=== PATIENT | male | born 1935 | race Caucasian/White ===

== ENCOUNTER → 2016-08-24 | Outpatient (CLI) | payer BC ==
[~2016-08-24] MED LIST: AMLO-110 PO; BNC5 PO; CLL250 PO; CLTP PO; CYAN10005 PO; FLV1 PO; FSM70 PO; IBUP1CAP9 PO; LOSA100T65 PO; PRED-301 PO
[2016-08-24 09:41] LABS: BASO % 0.4 %; BASO ABS # 0.03 K/uL (0-0.2); COMPLETE YES; EOS % 2.9 %; HEMATOCRIT 42.3 % (42-52); IG% 0.4 %; LYMPH % 45.6 %; LYMPH ABS # 3.49 K/uL (1.2-3.4); MEAN CELL VOLUME 92.4 fL (80-100); MEAN CORPUSCULAR HEMOGLOBIN 30.3 pg (25-34); MEAN CORPUSCULAR HGB CONC 32.9 g/dl (32-36); MEAN PLATELET VOLUME 11.4 fL (7.4-10.4); MONO % 11.8 %; NEUT % 38.9 %; PLATELET COUNT 246 K/uL (130-400); RED BLOOD COUNT 4.58 M/uL (4.7-6.1); WHITE BLOOD COUNT 7.65 K/uL (4.8-10.8)
[2016-08-24 10:00] LABS: BLOOD UREA NITROGEN 17 mg/dl (7-18); CARBON DIOXIDE 25 mmol/L (21-32); CHLORIDE 107 mmol/L (98-107); CHOLESTEROL 197 mg/dl (0-200); CREATININE 0.83 mg/dl (0.60-1.40); GLUCOSE 91 mg/dl (70-99); POTASSIUM 4.1 mmol/L (3.5-5.1); SODIUM 141 mmol/L (136-145); TRIGLYCERIDES 59 mg/dl (0-150); VERY LOW DENSITY LIPOPROT CALC 12 mg/dl
[2016-08-24 10:08] LABS: ESTIMATED AVERAGE GLUCOSE 120 mg/dl; HA1C FLAG Normal (Normal)
[2016-08-24 10:10] LABS: CHOLESTEROL/HDL RATIO 2.4; HDL CHOLESTEROL 82 mg/dl; LDL CHOLESTEROL CALCULATED 103 mg/dl
[2016-08-24 10:14] LABS: CALCIUM 9.1 mg/dl (8.5-10.1)
== END | disposition home or self-care (01) ==
LOC: C.LAB 07:22
PROVIDERS: ATTEND Internal Medicine
DX: G70.00 Myasthenia gravis without (acute) exacerbation (principal); R73.9 Hyperglycemia, unspecified; E78.5 Hyperlipidemia, unspecified

== ENCOUNTER → 2017-02-01 | Outpatient (CLI) | payer BC ==
[2017-02-01 09:35] LABS: BASO % 0.2 %; BASO ABS # 0.01 K/uL (0-0.2); COMPLETE YES; EOS % 5.9 %; HEMATOCRIT 42.4 % (42-52); IG% 0.3 %; LYMPH % 32.6 %; MEAN CELL VOLUME 93.4 fL (80-100); MEAN CORPUSCULAR HEMOGLOBIN 31.9 pg (25-34); MEAN CORPUSCULAR HGB CONC 34.2 g/dl (32-36); MEAN PLATELET VOLUME 11.2 fL (7.4-10.4); MONO % 9.9 %; NEUT % 51.1 %; PLATELET COUNT 198 K/uL (130-400); RED BLOOD COUNT 4.54 M/uL (4.7-6.1); WHITE BLOOD COUNT 6.45 K/uL (4.8-10.8)
[2017-02-01 10:18] LABS: ALT/SGPT 24 U/L (12-78); AST/SGOT 14 U/L (15-37); BLOOD UREA NITROGEN 24 mg/dl (7-18); BUN/CREATININE RATIO 26.5 (10-20); CARBON DIOXIDE 26 mmol/L (21-32); CHLORIDE 104 mmol/L (98-107); CREATININE 0.89 mg/dl (0.60-1.40); GLUCOSE 91 mg/dl (70-99); SODIUM 139 mmol/L (136-145)
[2017-02-01 10:23] LABS: CHOLESTEROL 228 mg/dl (0-200); CHOLESTEROL/HDL RATIO 2.9; HDL CHOLESTEROL 78 mg/dl; LDL CHOLESTEROL CALCULATED 128 mg/dl; TRIGLYCERIDES 111 mg/dl (0-150); VERY LOW DENSITY LIPOPROT CALC 22 mg/dl
[2017-02-01 12:40] LABS: ESTIMATED AVERAGE GLUCOSE 114 mg/dl; HA1C FLAG Normal (Normal)
== END | disposition home or self-care (01) ==
LOC: C.LAB 07:51
PROVIDERS: ATTEND Internal Medicine
DX: E78.5 Hyperlipidemia, unspecified (principal); I10 Essential (primary) hypertension; R73.9 Hyperglycemia, unspecified; G70.00 Myasthenia gravis without (acute) exacerbation; Z12.5 Encounter for screening for malignant neoplasm of prostate

== ENCOUNTER → 2017-03-02 | Outpatient (CLI) | payer BC ==
[~2017-03-02] MED LIST changes: +GADAVIST IV PRN
--- NOTE | 2017-03-02 11:52 | DIAGNOSTIC IMAGING REPORT ---
ABDOMEN COMBO CLINICAL HISTORY: 81 years-old Male presenting with K86.2 Pancreatic cystD49.0 Pancreas [id number]. TECHNIQUE: Multisequence, multiplanar MR imaging of the abdomen was performed before and after the administration of intravenous contrast. IV contrast: 8 mL of Gadavist. COMPARISON: 01/22/2015. FINDINGS: Localizer images: Unremarkable. Lung bases: Lung bases clear. Normal heart size. No pericardial or pleural effusion. Liver: Normal morphology. Stable appearance of the lobular septated 10 mm lesion in the right hepatic lobe consistent with hepatic cyst. Additional subcentimeter punctate cystic lesions noted throughout the liver consistent with hamartomas are hepatic cysts. Hepatic fat fraction measures 3.7%, which is normal. Patent hepatic vasculature with conventional hepatic arterial anatomy. Biliary: Conventional intrahepatic biliary bifurcation. No intrahepatic or extrahepatic biliary ductal dilatation. Normal gallbladder. Pancreas: Stable appearance of the 2 cystic lesions in the pancreas, the smaller in the pancreatic tail measuring 6 mm and the larger at the neck body junction measuring 20 mm. Additional 5 mm cystic lesion in the pancreatic head. No pancreatic ductal dilatation or worrisome petrous. Spleen: Small cystic lesion laterally in the spleen consistent with pseudocyst or lymphangioma. Small enhancing focus at the inferior aspect of the spleen consistent with subcentimeter hemangioma. Adrenal glands: Normal. Kidneys and ureters: Normal. No hydronephrosis. Bowel: Normal. No bowel obstruction. Peritoneal cavity: No free fluid or intraperitoneal gas. Lymph nodes: No enlarged lymph nodes in the abdomen. Vasculature: Aorta and IVC patent and normal in caliber. Abdominal wall: Normal. Musculoskeletal: Postsurgical changes of transpedicular screw and elaine fixation of L2-L5 with laminectomy defects. IMPRESSION: 1. 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 No worrisome features. These have been stable for over 2 years. Per the [employer] incidental findings committee recommendations no further follow-up would be indicated. Electronically signed by: Carson Peters M.D. 03/02/2017 11:50 AM Dictated Date/Time: 03/02/2017 11:40 AM
== END | disposition home or self-care (01) ==
LOC: C.MRIBC 10:48
PROVIDERS: ATTEND Internal Medicine
DX: D49.0 Neoplasm of unspecified behavior of digestive system (principal); K86.2 Cyst of pancreas

== ENCOUNTER → 2017-07-23 | Outpatient (CLI) | payer BC ==
[~2017-07-23] MED LIST changes: -GADAVIST IV PRN
[2017-07-23 10:05] LABS: HEMOGLOBIN A1C 5.5 % (4.5-5.6)
[2017-07-23 10:28] LABS: ALT/SGPT 26 U/L (12-78); AST/SGOT 15 U/L (15-37); BLOOD UREA NITROGEN 12 mg/dl (7-18); CALCIUM 9.2 mg/dl (8.5-10.1); CARBON DIOXIDE 29 mmol/L (21-32); CHOLESTEROL 236 mg/dl (0-200); CREATININE 0.88 mg/dl (0.60-1.40); GLUCOSE 92 mg/dl (70-99); POTASSIUM 4.2 mmol/L (3.5-5.1); SODIUM 141 mmol/L (136-145)
[2017-07-23 10:31] LABS: LDL CHOLESTEROL CALCULATED 127 mg/dl
== END | disposition home or self-care (01) ==
LOC: C.LAB 08:19
PROVIDERS: ATTEND Internal Medicine
DX: E78.5 Hyperlipidemia, unspecified (principal); I10 Essential (primary) hypertension; R73.9 Hyperglycemia, unspecified

== ENCOUNTER 2023-06-07 16:35 | Inpatient (IN) ==
--- NOTE | 2023-06-07 17:04 | ED Triage Note ---
Date of Service June 07, 2023 Provider in Triage Author: Elizabeth Mariscal History of Present Illness This patient was briefly evaluated while in triage. An abbreviated physical exam was performed. This patient is a 87-year-old Male who presents to the ED for evaluation of abnormal EKG. Evaluated by PCP for shortness of breath, decreased appetite, lethargy s/p COVID infection 05/19, reportedly had abnormal EKG and referred for eval. Denies fevers. Notes left sided chest pain with cough and dyspnea on exertion. H/o of PE but not on any blood thinner. Physical Exam Constitutional: alert and oriented x3. no acute distress. HEENT: normocephalic, atraumatic. normal conjunctiva.PERRLA. EOM's grossly intact. Respiratory: equal chest rise. normal respiratory effort, no accessory muscle use. Cardiovascular: regular rate and rhythm. MSK: moves all 4 extremities spontaneously Psych:appropriate mood and affect. Initial orders for labs and / or imaging were placed and patient was placed in the waiting area until a bed is available. Please see further documentation for the full ED course.
[2023-06-07 17:33] LABS: Basophils # (auto) 0.04 K/uL (0.00-0.20); Basophils % (auto) 0.2 %; Eosinophils # (auto) 0.03 K/uL (0.00-0.50); Eosinophils % (auto) 0.2 %; Hemoglobin 14.3 g/dl (14.0-18.0); Immature Granulocytes # (auto) 0.15 K/uL (0.01-0.20); Immature Granulocytes % (auto) 0.8 %; Lymphocytes # (auto) 2.81 K/uL (1.20-3.40); Lymphocytes % (auto) 14.9 %; Mean Corpuscular Hgb Conc 33.3 g/dL (32.0-36.0); Mean Corpuscular Volume 93.3 fL (80.0-100.0); Mean Platelet Volume 11.2 fL (9.4-12.4); Neutrophils # (auto) 14.27 K/uL (1.40-6.50); Neutrophils % (auto) 75.9 %; Platelet Count 236 K/uL (130-400); RDW Coefficient of Variation 12.4 % (11.5-14.5); RDW Standard Deviation 42.9 fL (36.4-46.3); Red Blood Count 4.61 M/uL (4.70-6.10)
--- NOTE | 2023-06-07 17:34 | Emergency Department Note ---
Impression & Plan Pulmonary embolism, bilateral, Shortness of breath, Atrial fibrillation with RVR ED Provider Note NAME: TONI MARRERO AGE: 87 SEX: M : 1935 ARRIVES VIA: Walk-In INFORMANT: Patient, ED PROVIDER(S): Chavez Comer MD CHIEF COMPLAINT: Shortness of breath, outpatient referral MEDICAL DECISION MAKING: Patient presents due to concern for dyspnea and seen in the outpatient setting referred here for evaluation and treatment. Patient was noted to be irregularly irregular and tachycardic. Patient on home metoprolol was ordered Lopressor. Patient did have improvements slightly improved rate. Additional rate control deferred patient CT angiography of the chest. Patient does have a white count of 18 and there was concern for possible consolidation seen on x-ray as the patient did have a Pro-Elias ordered Rocephin and Doxy in and blood cultures. The patient sodium 132. BNP elevated to 18. Patient's chest x-ray does show pleural effusions. CT angiography of the chest does show concern for extensive bilateral PE with pleural effusions. Cannot rule out superimposed pneumonia. Also associated aneurysmal dilatation of the ascending aorta. Patient was ordered a heparin bolus and drip. I did inform the patient the patient's family of the findings. They are comfortable plan of care. The patient does feel improved. Lasix held given the patient's bilateral PEs. Critical Care: I have personally spent 45 minutes of critical care time in direct management of this patient. This includes bedside care, interpretation of diagnostic studies, and testing, discussion with consultants, patient, and family members, and other require inpatient management activities. This 45 minutes is in excess of all separately billable procedures. Discussion w/ other healthcare providers: Dr. Jung inpatient medicine service Prior /Outside records reviewed: I reviewed a cardiology visit from Dr. Hansen from November 12, 2022. The patient is a known history of moderate AAS/MR and frequent PVCs. Patient does have a prior history of PE in 2016. Patient was prior history of B12 folic acid prednisone vitamin D3 amlodipine CellCept and metoprolol. I reviewed a primary care visit from Meenu Ferguson PA-C and Dr. Torres prior to the visit. Patient had presented due to concern for pleuritic chest pain MTHFR gene mutation dyspnea and tachycardia patient was to be referred to the emergency department for further evaluation. Differential diagnosis: Reactive airway disease, pneumonia, pneumothorax, COPD, CHF, ACS, pulmonary embolism, musculoskeletal, GERD as well as other pathologies were considered. Diagnostics, as interpreted by me: ECG: A-fib, RVR, rate 135, normal QRS, normal axis no ST elevations. Cardiac monitoring: An order was placed for continuous cardiac monitoring. The monitor shows a rate of 115 with tachycardic and irregular irregular rhythm. Patient was placed on pulse oximetry Medical decision rules: None Imaging studies: I informally interpreted the patient's chest x-ray does show bilateral pleural effusions with formal report to follow. HPI: Patient presents due to concern for shortness of breath. The patient was seen as an outpatient referred here for further evaluation and treatment. The patient states that he had shortness of breath for several weeks and had a recent COVID illness around that time but it seemed to improve and then worsened last . The patient denies any palpitations or fluttering. The patient does have a history of PVCs and does take metoprolol. Prior history of MTHFR mutation but does not take any current blood thinning medications. Patient denies any recent surgeries procedures hospitalizations or prolonged car or plane travel. Patient denies any falls or trauma. The patient does have some chest pain with lying flat. Patient does complain of exertional dyspnea. No significant shortness of breath at rest. The patient does sound as though he has a wet cough but it is not productive. PAST MEDICAL HISTORY: See Below PAST SURGICAL HISTORY: See Below SOCIAL HISTORY: See Below HOME MEDICATIONS: See Below ALLERGIES: See Below VITALS: See Below PHYSICAL EXAMINATION: GENERAL: NAD, non-toxic. EYE EXAM: Normal conjunctiva. PERRL, no anisocoria and EOM's grossly intact w/o pain. OROPHARYNX: Moist mucus membranes, grossly normal dentition. NECK: Trachea midline, no stridor. Supple, no nuchal rigidity, no adenopathy, non-tender. No signs of meningismus. FROM of the neck with good chin to chest and neck extension. LUNGS: Clear to auscultation. Normal chest wall mechanics. HEART: Irregular irregular tachycardic, no MRG. ABDOMEN: Abdomen soft, non-tender, no masses, no rebound or guarding. BACK: No CVA TTP. SKIN: No rashes and no bruising. UPPER EXTREMITIES: Upper extremities are grossly normal. LOWER EXTREMITIES: Grossly normal, 3-4+ bilateral lower extremity edema without any calf pain or erythema NEURO EXAM: A&O x3, cranial nerves II-XII grossly intact, normal speech, moves all 4 extremities. Past Med/Surg History Medical History Myofascial pain Ambulatory dysfunction Postlaminectomy syndrome of lumbosacral region Sacroiliitis Leg length discrepancy Cervical radiculopathy at C5 Generalized osteoarthritis Hammer toe Hyperglycemia Hyperlipidemia Osteopenia Pancreatic cyst Myasthenia gravis 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 melanoma of left lower leg Pulmonary embolism (2016) 2016--unknown cause;not on any blood thinners Chronic steroid use Hypertension Asthma in the past; no inhalers/nebulizers/no issues Surgical History History of hammertoe correction right foot History of lumbar spinal fusion x2 History of repair of right rotator cuff x2 History of repair of left rotator cuff History of total right hip replacement History of arthroscopy of right knee History of total right knee replacement (TKR) Hx of vasectomy History of ERCP biopsy tumor of pancreas--benign History of melanoma excision x2 History of wisdom tooth extraction History of bilateral cataract extraction Family History Mother Breast cancer Father , AGE 83 CHF (congestive heart failure) Hypertension Myocardial infarction Grandmother (Maternal) , AGE 56 Stroke Brother , AGE 75 Stroke Grandfather (Maternal) Valvular heart disease Other Crohn's disease Denies family history of Colon cancer Ovarian cancer Prostate cancer Colorectal cancer Ulcerative colitis Social History Smoking Status: Never smoker packs per day: 0.75; Second Hand Exposure: Yes ( smoked/father smoked); Hx Alcohol Use: No Hx Substance Use: No Preferred Language: Malian Communication Ability: Effective Visual Impairment: No Limitations Hearing Ability: Use of Hearing Aid Pulling Machine Operator Required: No Beliefs That Will Affect Care: None marital status: Current Living Situation: Spouse current occupational status: retired 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 Feels Safe at Home: Yes Dental Care, Regularly: Yes Physical Activity Frequency: Daily Seatbelt Use: always Assistive Devices: Glasses and Hearing Aid - Bilateral Allergies Allergies Allergy/AdvReac Type Severity Reaction Status Date / Time ciprofloxacin Allergy Intermediate RASH Verified 06/07/23 18:55 Home Meds Home Medications Medication Instructions Recorded Confirmed cyanocobalamin (vitamin B-12) 1,000 mcg PO QAM 01/10/19 06/07/23 1,000 mcg tablet (Vitamin B-12) folic acid 1 mg tablet 1 mg PO QAM 01/10/19 06/07/23 prednisone 10 mg tablet 5 - 10 mg PO Q OTHER DAY 11/01/19 06/07/23 cholecalciferol (vitamin D3) 50 2,000 unit PO DAILY 01/08/22 06/07/23 mcg (2,000 unit) capsule mycophenolate mofetil 500 mg 500 mg PO DAILY 07/30/22 06/07/23 tablet (CellCept) Previous Rx's Medication Instructions Recorded metoprolol succinate 25 mg 25 mg PO DAILY #90 tabs 10/08/22 tablet,extended release 24 hr amlodipine 5 mg tablet 5 mg PO HS #90 tabs 01/20/23 Results & Data (ED) Vital Signs Vital Signs - 24 hr 06/07/23 17:02 06/07/23 17:47 06/07/23 18:00 Temperature 36.7 C Temperature Source Temporal Artery Scan Pulse Rate 103 H 115 H 122 H Respiratory Rate 20 21 Respiratory Effort / Characteristics Non-Labored Spontaneous Respiratory Depth Normal Blood Pressure 120/52 L 113/86 Blood Pressure Mean 74 95 Blood Pressure Position Sitting Pulse Oximetry 94 92 Oxygen Delivery Method Room Air Sepsis Recent Fever Within 48 Hours No Sepsis New/Unexplained Change in Mental Status No Sepsis Action Taken by Nursing No Action Required 06/07/23 18:06 06/07/23 18:36 06/07/23 19:32 Temperature Temperature Source Pulse Rate 122 H 98 H 112 H Respiratory Rate Respiratory Effort / Characteristics Respiratory Depth Blood Pressure 113/86 113/89 127/78 Blood Pressure Mean 97 Blood Pressure Position Pulse Oximetry 92 Oxygen Delivery Method Sepsis Recent Fever Within 48 Hours Sepsis New/Unexplained Change in Mental Status Sepsis Action Taken by Fdc Medications Current Medication List: was personally reviewed by me Laboratory Data Attestation: I reviewed the patient's lab results. 06/07/23 17:16 06/07/23 17:16 Lab Results 06/07/23 06/07/23 06/07/23 Range/Units 17:16 19:02 19:04 WBC 18.80 H (4.8-10.8) K/ul RBC 4.61 L (4.70-6.10) M/uL Hgb 14.3 (14.0-18.0) g/dl Hct 43.0 (42.0-52.0) % MCV 93.3 (80.0-100.0) fL MCH 31.0 (25.0-34.0) pg MCHC 33.3 (32.0-36.0) g/dL RDW Std Deviation 42.9 (36.4-46.3) fL RDW Coeff of Carlene 12.4 (11.5-14.5) % Plt Count 236 (130-400) K/uL MPV 11.2 (9.4-12.4) fL Immature Gran % (Auto) 0.8 % Neut % (Auto) 75.9 % Lymph % (Auto) 14.9 % [place] % (Auto) 8.0 % Eos % (Auto) 0.2 % Baso % (Auto) 0.2 % Neut # (Auto) 14.27 H (1.40-6.50) K/uL Lymph # (Auto) 2.81 (1.20-3.40) K/uL [place] # (Auto) 1.50 H (0.11-0.59) K/uL Eos # (Auto) 0.03 (0.00-0.50) K/uL Baso # (Auto) 0.04 (0.00-0.20) K/uL Immature Gran # (Auto) 0.15 (0.01-0.20) K/uL PT 13.5 H (9.0-12.0) Seconds INR 1.2 H (0.9-1.1) APTT 26 (21-31) Seconds PTT Ratio 0.9 Sodium 132 L (136-145) mmol/L Potassium 4.6 (3.5-5.1) mmol/L Chloride 97 L (98-107) mmol/L Carbon Dioxide 26 (21-32) mmol/L Anion Gap 9 (3-11) BUN 17 (6-23) mg/dl Creatinine 1.02 (0.6-1.4) mg/dl Est Cr Clr Drug Dosing Not Reportable Est GFR ( Amer) 76.8 ml/min Est GFR (Non-Af Amer) 66.2 ml/min BUN/Creatinine Ratio 16.7 (10-20) Glucose 122 H (70-99(Fasting)) mg/dl Calcium 9.8 (8.6-10.3) mg/dl Phosphorus 3.5 (2.5-4.9) mg/dl Magnesium 1.9 (1.7-2.4) mg/dl Total Bilirubin 1.5 H (0.2-1.0) mg/dl AST 11 L (13-39) U/L ALT 11 (7-52) U/L Alkaline Phosphatase 56 (34-104) U/L Troponin I High Sens 9.7 (0-20) pg/ml B-Natriuretic Peptide 218 H (0-100) pg/ml Total Protein 6.6 (6.0-8.3) gm/dl Albumin 3.6 (3.4-5.0) gm/dl Globulin 3.0 (2.5-4.0) gm/dl Albumin/Globulin Ratio 1.2 (0.9-2) Lipase 14 (11-82) U/L Procalcitonin 0.11 (0-0.5) ng/ml TSH 1.231 (0.300-4.500) uIu/ml Administered Medications Heparin Sodium/Dextrose (Heparin Sodium/Dextrose) 25,000 units in 500 mls @ 27 mls/hr IV .[id number] [facility]; Protocol Stop: 07/07/23 19:14 Last Admin: 06/07/23 20:33 Dose: 1,350 units/hr, 27 mls/hr Documented By: FERMIN Co-signed By: LYNN Metoprolol Succinate (Metoprolol Succ 25mg Ext Rel Tab) 25 mg PO PM ANDRÉS Stop: 07/07/23 21:40 Last Admin: 06/07/23 22:17 Dose: 25 mg Documented By: BK Discontinued Medications Doxycycline Hyclate (Doxycycline Hyclate 100 Mg Cap) 100 mg PO NOW STA Stop: 06/07/23 18:43 Last Admin: 06/07/23 19:33 Dose: 100 mg Documented By: HH Furosemide (Furosemide 40 Mg/4 Ml Vial) 40 mg IV ONE ONE Stop: 06/07/23 18:42 Last Admin: 06/07/23 19:50 Dose: Not Given Documented By: PETEY Heparin Sodium (Porcine) (Heparin Sod (Porcine) 1000 Unit/Ml) 1 units IV NOW ONE Stop: 06/07/23 19:23 Last Admin: 06/07/23 20:46 Dose: Not Given Documented By: PETEY Heparin Sodium (Porcine) (Heparin Ivp From [facility] Protocol (With Bolus)) 6,000 units IV NOW ONE Stop: 06/07/23 20:01 Last Admin: 06/07/23 20:32 Dose: 6,000 units Documented By: FERMIN Co-signed By: LYNN Heparin Sodium/Dextrose (Heparin Iv Adult Wt-Based Standard *No* Initial Bolus Protocol) 1 each IV ONE STA; Protocol Stop: 06/07/23 19:00 Last Admin: 06/07/23 20:01 Dose: Not Given Documented By: PETEY Heparin Sodium/Dextrose (Heparin Iv Adult Wt-Based Standard W/ Initial Bolus Protocol) 1 each IV NOW STA; Protocol Stop: 06/07/23 19:08 Last Admin: 06/07/23 20:46 Dose: Not Given Documented By: PETEY Ceftriaxone Sodium (Rocephin) 2,000 mg in 50 mls @ 100 mls/hr IV NOW STA Stop: 06/07/23 19:11 Last Infusion: 06/07/23 20:28 Dose: Infused Documented By: Admin: 06/07/23 19:33 Dose: 100 mls/hr Documented By: PETEY Magnesium Sulfate/Dextrose (Magnesium Sulfate / D5w) 1 gm in 100 mls @ 50 mls/hr IV ONE ONE Stop: 06/07/23 23:40 Last Admin: 06/07/23 22:17 Dose: 50 mls/hr Documented By: KENYA Ioversol (Optiray 350 500ml) 100 ml IV ONCE ONE Stop: 06/07/23 18:29 Last Admin: 06/07/23 18:29 Dose: 100 ml Documented By: RAD Metoprolol Tartrate (Metoprolol Tartrate 1 Mg/Ml Vial) 5 mg IV NOW STA Stop: 06/07/23 17:35 Last Admin: 06/07/23 18:06 Dose: 5 mg Documented By: MT Imaging Data Radiologist's Impression: Chest CTA 06/07/23 17:04 CT ANGIOGRAM OF THE CHEST CLINICAL HISTORY: Atypical chest pain. Dyspnea. COMPARISON STUDY: Chest CT dated 12/06/2011. Chest x-ray dated 06/07/2023. TECHNIQUE: Following the IV administration of 100 cc of Optiray 320, CT angiogram of the chest was performed from the upper abdomen to the thoracic inlet utilizing the pulmonary embolus protocol. Images are reviewed in the axial, sagittal, and coronal planes. 3-D MIPS images are created and assessed. IV contrast was administered without complication. A dose lowering technique was utilized adhering to the principles of ALARA. CT DOSE: 613.87 mGy.cm FINDINGS: Thyroid: Imaged portions of the thyroid gland are normal in size and attenuation. Thoracic aorta: There is atherosclerotic calcification of the thoracic aorta. There is no aneurysm and dilatation of the ascending thoracic aorta which measures up to 4.3 cm in diameter. The remainder of the thoracic aorta is normal in caliber, and the arch demonstrates standard 3-vessel anatomy. The thoracic aorta is not well-opacified. Pulmonary vasculature: The main pulmonary arteries are dilated suggesting pulmonary artery hypertension. There is pulmonary embolus within the distal right main pulmonary artery. This extends into the right upper, right middle, right lower lobe pulmonary arteries into segmental and subsegmental branches. There is also thrombus in the distal left main pulmonary artery. This extends into the left lower lobe pulmonary artery into segmental and subsegmental branches. There is also segmental and subsegmental pulmonary embolus within branches of the left upper lobe and lingular pulmonary artery. Heart: The heart is enlarged and without pericardial effusion. The coronary arteries and aortic valve leaflets are densely calcified. Lungs and pleural spaces: There are right larger than left pleural effusions with dependent consolidation. There is also peripheral wedge-shaped consolidation in the right upper lobe seen on image #136. The trachea and central airways are clear. Scattered calcified granulomas are observed. Mediastinum: A mildly enlarged prevascular node measures 12 mm in short axis. Dorota: Mildly enlarged hilar nodes measure up to 10 mm in short axis. Axillae: There is no axillary lymphadenopathy. Upper abdomen: Partially visualized upper abdominal viscera is within normal limits. Skeletal structures: The skeletal structures are osteopenic. Degenerative change is noted in the shoulders and spine. No lytic or blastic bony lesions are seen. IMPRESSION: 1. Extensive bilateral pulmonary embolus as above. 2. Cardiomegaly. 3. Right larger than left pleural effusions with dependent consolidation. Given the volume of thrombus this likely represents pulmonary infarcts. Correlate clinically for evidence of a superimposed pneumonia. Radiographic follow-up to resolution is recommended 4. There is mild aneurysmal dilatation of the ascending thoracic aorta which measures up to 4.3 cm. 5. Mildly enlarged mediastinal and hilar nodes are nonspecific and likely reactive. 6. Additional findings as above. ACT 112: Negative or not required by law. Electronically signed by: Naveen Loyd M.D. 06/07/2023 6:46 PM Chest X-Ray 06/07/23 17:04 SINGLE VIEW CHEST CLINICAL HISTORY: Atypical chest pain. FINDINGS: An AP, portable, upright chest radiograph is compared to chest x-ray and chest CT dated 12/06/2011. The heart is enlarged noting atherosclerotic calcification of the thoracic aorta. There is pulmonary vascular congestion. Chronic interstitial thickening is similar to previous. There are right larger than left pleural effusions with dependent consolidation. No pneumothorax is seen. The skeletal structures are osteopenic. The bony thorax is grossly intact. Advanced arthritic change is noted in the shoulders. IMPRESSION: 1. Cardiomegaly evidence of congestive failure. 2. Right larger than left effusions with dependent consolidation. Radiographic follow-up to resolution is recommended. ACT 112: Negative or not required by law. Electronically signed by: Naveen Loyd M.D. 06/07/2023 6:06 PM Discharge Plan Visit Data Chief Complaint: Referred by Doctor Stated Complaint: REF BY DOC,CARDIAC ASSESSMENT,?BLOODCLOT ED Provider: Chavez Comer Discharge Problem: Pulmonary embolism, bilateral, Shortness of breath, Atrial fibrillation with RVR Patient Disposition: Admitted As Inpatient Discharge Instructions Interventions: ED Discharge Assessment Last Done: 06/07/23 20:47
[2023-06-07 17:49] LABS: Alanine Aminotransferase 11 U/L (7-52); Albumin Globulin Ratio 1.2 (0.9-2); Albumin Level 3.6 gm/dl (3.4-5.0); Alkaline Phosphatase 56 U/L (34-104); Anion Gap 9 (3-11); Aspartate Aminotransferase 11 U/L (13-39); BUN Creatinine Ratio 16.7 (10-20); Bilirubin,Total 1.5 mg/dl (0.2-1.0); Blood Urea Nitrogen 17 mg/dl (6-23); Calcium 9.8 mg/dl (8.6-10.3); Carbon Dioxide 26 mmol/L (21-32); Chloride 97 mmol/L (98-107); Est GFR (African American) 76.8 ml/min; Est GFR (Non-African American) 66.2 ml/min; Glucose 122 mg/dl (70-99(Fasting)); Lipase 14 U/L (11-82); Magnesium 1.9 mg/dl (1.7-2.4); Potassium 4.6 mmol/L (3.5-5.1); Sodium 132 mmol/L (136-145); Total Protein 6.6 gm/dl (6.0-8.3)
[2023-06-07 17:55] LABS: Troponin I High Sensitivity 9.7 pg/ml (0-20)
[2023-06-07 17:58] LABS: Phosphorus 3.5 mg/dl (2.5-4.9)
[2023-06-07] MEDS: METOPROLOL TARTRATE 1 MG/ML VIAL IV STA (18:06)
--- NOTE | 2023-06-07 18:08 | XRay Report ---
SINGLE VIEW CHEST CLINICAL HISTORY: Atypical chest pain. FINDINGS: An AP, portable, upright chest radiograph is compared to chest x-ray and chest CT dated 11/14. The heart is enlarged noting atherosclerotic calcification of the thoracic aorta. There is pu lmonary vascular congestion. Chronic interstitial thickening is similar to previous. There are right larger than left pleural effusions with dependent consolidation. No pneumothorax is seen. The skeleta l structures are osteopenic. The bony thorax is grossly intact. Advanced arthritic change is noted in the shoulders. IMPRESSION: 1. Cardiomegaly evidence of congestive failure. 2. Right larger than left effusions with dependent consolidation. Radiographic follow-up to resolutio n is recommended. ACT 112: Negative or not required by law. Electronically signed by: Naveen Loyd M.D. 06/07/2023 6:06 PM
[2023-06-07 18:13] LABS: INR 1.2 (0.9-1.1); Partial Thromboplastin Ratio 0.9; Partial Thromboplastin Time 26 Seconds (21-31); Prothrombin Time 13.5 Seconds (9.0-12.0)
[2023-06-07] MEDS: OPTIRAY 350 500ml IV ONE (18:29)
--- NOTE | 2023-06-07 18:48 | CT Scan Report ---
CT ANGIOGRAM OF THE CHEST CLINICAL HISTORY: Atypical chest pain. Dyspnea. COMPARISON STUDY: Chest CT dated 12/06/2011. Chest x-ray dated 06/07/2023. TECHNIQUE: Following the IV administration of 100 cc of Optiray 320, CT angiogram of the chest was pe rformed from the upper abdomen to the thoracic inlet utilizing the pulmonary embolus protocol. Images are reviewed in the axial, sagittal, and coronal planes. 3-D MIPS images are created and assessed. I V contrast was administered without complication. A dose lowering technique was utilized adhering to the principles of ALARA. CT DOSE: 613.87 mGy.cm FINDINGS: Thyroid: Imaged portions of the thyroid gland are normal in size and attenuation. Thoracic aorta: There is atherosclerotic calcification of the thoracic aorta. There is no aneurysm an d dilatation of the ascending thoracic aorta which measures up to 4.3 cm in diameter. The remainder o f the thoracic aorta is normal in caliber, and the arch demonstrates standard 3-vessel anatomy. The t horacic aorta is not well-opacified. Pulmonary vasculature: The main pulmonary arteries are dilated suggesting pulmonary artery hypertensi on. There is pulmonary embolus within the distal right main pulmonary artery. This extends into the r ight upper, right middle, right lower lobe pulmonary arteries into segmental and subsegmental branche s. There is also thrombus in the distal left main pulmonary artery. This extends into the left lower lobe pulmonary artery into segmental and subsegmental branches. There is also segmental and subsegmen umair pulmonary embolus within branches of the left upper lobe and lingular pulmonary artery. Heart: The heart is enlarged and without pericardial effusion. The coronary arteries and aortic valve leaflets are densely calcified. Lungs and pleural spaces: There are right larger than left pleural effusions with dependent consolida tion. There is also peripheral wedge-shaped consolidation in the right upper lobe seen on image #136. The trachea and central airways are clear. Scattered calcified granulomas are observed. Mediastinum: A mildly enlarged prevascular node measures 12 mm in short axis. Dorota: Mildly enlarged hilar nodes measure up to 10 mm in short axis. Axillae: There is no axillary lymphadenopathy. Upper abdomen: Partially visualized upper abdominal viscera is within normal limits. Skeletal structures: The skeletal structures are osteopenic. Degenerative change is noted in the shou lders and spine. No lytic or blastic bony lesions are seen. IMPRESSION: 1. Extensive bilateral pulmonary embolus as above. 2. Cardiomegaly. 3. Right larger than left pleural effusions with dependent consolidation. Given the volume of thrombu s this likely represents pulmonary infarcts. Correlate clinically for evidence of a superimposed pneu monia. Radiographic follow-up to resolution is recommended 4. There is mild aneurysmal dilatation of the ascending thoracic aorta which measures up to 4.3 cm. 5. Mildly enlarged mediastinal and hilar nodes are nonspecific and likely reactive. 6. Additional findings as above. ACT 112: Negative or not required by law. Electronically signed by: Naveen Loyd M.D. 06/07/2023 6:46 PM
[2023-06-07] MEDS ORDERED: HEPARIN SODIUM/DEXTROSE 25,000 UNITS/500 ML BAG IV SCH (19:30)
[2023-06-07] MEDS: cefTRIAXone SODIUM 2,000 MG/50 ML BAG IV STA (19:33)
[2023-06-07] MEDS: DOXYCYCLINE HYCLATE 100 MG CAP PO STA (19:33)
--- NOTE | 2023-06-07 19:42 | History & Physical Report ---
Date of Service June 07, 2023 Assessment & Plan (1) Pulmonary embolism: Plan: 87yo male presenting with 5 days of progressive dyspnea on exertion. Patient found to have extensive bilateral PEs with likely pulmonary infarction. Patient with high risk PESI score (116 - based on age, gender, HR >110). He is currently saturating well on room air. YG=109 bpm with new atrial fibrillation. BP has been stable. He does have some pleuritic pain in his back bilaterally likely corresponding with his PEs/pulmonary infarcts. 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 Recent Covid-19 illness and has been somewhat sedentary. -Admit to PCU -Heparin gtt per weight based protocol -Patient will likely need lifelong anticoagulation (2) Atrial fibrillation: Plan: Patient follows with Cardiology for management of his chronic health issues. He has been noted to have frequent PVCs but has not had atrial fibrillation in the past. He is on Metoprolol daily for his PVCs. Electrolytes WNL. -Check TSH -Continue Metoprolol succinate 25mg po daily -Magnesium 1gm IV (3) Hypertension: Plan: Patient with well controlled hypertension -Continue Metoprolol -Continue Amlodipine -Monitor (4) Myasthenia gravis: Plan: Chronic. Stable -Continue mycophenolate Mofetil and Folic acid at home dose -Continue Prednisone alternating 5 - 10mg daily F/E/N - Saline lock. Electrolytes WNL. Heart healthy diet as tolerated Ppx - On heparin gtt as above Code - Full code per discussion with patient at time of admission Dispo - Admit to PCU History of Present Illness Chief Complaint: shortness of breath low back pain and abdominal pain Primary Care Provider: Sher Scales MD Harman Doe is a pleasant 87yo male with history of Myasthenia Gravis on daily Prednisone and Mycophenolate mofetil, HTN, HLP, prior VTE in 2011 with MTHFR gene presenting with shortness of breath. Patient had Covid-19 3 weeks ago (05/20/23). His symptoms were relatively mild - he did not require oxygen or hospitalization and was not treated with any anti- viral agents. He felt like he was recovering well until 06/03/23 when he developed worsening dyspnea on exertion as well as profound fatigue and generalized weakness. Also with worsening appetite, decreased oral intake and shooting pain in his lower back L>R and lower abdomen. The pain is worse with motion and deep breaths. Patient with chronic bilateral LE edema which he reports as fairly stable. He has intermittent diarrhea which he notes is likely secondary to his medications - no blood or mucus. He denies fever, chills, chest pain or palpitations. No dizziness, syncope, vomiting. Patient was seen by his doctor today for the complaint of dyspnea. Noted to be in irregularly irregular rhythm. Upon arrival to the ER he was found to be in atrial fibrillation with RVR - rate 93 - 122 ER Course: Metoprolol 5mg IV Ceftriaxone 2gm Doxycycline 100mg Heparin ordered - not yet started Allergies Allergy/AdvReac Type Severity Reaction Status Date / Time ciprofloxacin Allergy Intermediate RASH Verified 06/07/23 18:55 Home Medications Medication Instructions Recorded Confirmed Type cyanocobalamin (vitamin B-12) 1,000 mcg PO QAM 01/10/19 06/07/23 History 1,000 mcg tablet (Vitamin B-12) folic acid 1 mg tablet 1 mg PO QAM 01/10/19 06/07/23 History prednisone 10 mg tablet 5 - 10 mg PO Q OTHER DAY 11/01/19 06/07/23 History cholecalciferol (vitamin D3) 50 2,000 unit PO DAILY 01/08/22 06/07/23 History mcg (2,000 unit) capsule mycophenolate mofetil 500 mg 500 mg PO DAILY 07/30/22 06/07/23 History tablet (CellCept) metoprolol succinate 25 mg 25 mg PO DAILY #90 tabs 10/08/22 06/07/23 Rx tablet,extended release 24 hr amlodipine 5 mg tablet 5 mg PO HS #90 tabs 01/20/23 06/07/23 Rx Past Med/Surg History Medical History (Updated 06/07/23 @ 20:10 by Treasure Jung DO) Myofascial pain Ambulatory dysfunction Postlaminectomy syndrome of lumbosacral region Sacroiliitis Leg length discrepancy Cervical radiculopathy at C5 Generalized osteoarthritis Hammer toe Hyperglycemia Hyperlipidemia Osteopenia Pancreatic cyst Myasthenia gravis 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 melanoma of left lower leg Pulmonary embolism (2016) 2016--unknown cause;not on any blood thinners Chronic steroid use Hypertension Asthma in the past; no inhalers/nebulizers/no issues Surgical History History of hammertoe correction right foot History of lumbar spinal fusion x2 History of repair of right rotator cuff x2 History of repair of left rotator cuff History of total right hip replacement History of arthroscopy of right knee History of total right knee replacement (TKR) Hx of vasectomy History of ERCP biopsy tumor of pancreas--benign History of melanoma excision x2 History of wisdom tooth extraction History of bilateral cataract extraction Family History Mother Breast cancer Father , AGE 83 CHF (congestive heart failure) Hypertension Myocardial infarction Grandmother (Maternal) , AGE 56 Stroke Brother , AGE 75 Stroke Grandfather (Maternal) Valvular heart disease Other Crohn's disease Denies family history of Colon cancer Ovarian cancer Prostate cancer Colorectal cancer Ulcerative colitis Social History Smoking Status: Never smoker packs per day: 0.75; Cigarettes Per Day: 10-20; Second Hand Exposure: Yes ( smoked/father smoked); Do You Dip or Chew Tobacco: No; Hx Alcohol Use: No Hx Substance Use: No Preferred Language: French Communication Ability: Effective Visual Impairment: No Limitations Hearing Ability: Use of Hearing Aid Stencil Typist Required: No Beliefs That Will Affect Care: None marital status: Current Living Situation: Spouse current occupational status: retired current occupation: RETIRED [employer] Feels Safe at Home: Yes Dental Care, Regularly: Yes Physical Activity Frequency: Daily Seatbelt Use: always Assistive Devices: Glasses and Hearing Aid - Bilateral Review of Systems Review of Systems: All systems reviewed & are unremarkable except as noted in HPI & below Physical Exam Physical Exam: General: patient resting comfortably, NAD, non-toxic in appearance, AA&O x 4 Skin: warm, dry, intact, no rashes or lesions HEENT: NC/AT, PERRL, EOMI, anicteric sclera, conjunctiva without injection, external ear normal to inspection and nontender, nares patent, moist mucus membranes, dentition intact, no oropharyngeal lesions, neck supple, trachea midline, no LAD, no thyromegaly, no JVD Heart: +S1/S2,irregularly irregular and tachycardic, 3/6 CHEPE across precordium with radiation across the precordium to bilateral carotids Lungs: patient taking somewhat shallow breaths, diminished breath sounds in bilateral bases with some crackles Abd: +BS, soft, NT/ND, no masses/organomegaly/ascites Ext: warm, 2+ pulses in UE/LE bilaterally, no clubbing/cyanosis, 3+ pitting edema of bilateral LE Neuro: nonfocal, patient AA&O x 4, speech intact, no facial droop, moving all extremities on command with equal strength 5/5 Results & Data Results & Data Vital Signs (Past 12 Hours) Vital Signs Temp Pulse Resp BP Pulse Ox O2 Del Method 06/07/23 19:32 112 H 127/78 06/07/23 18:36 98 H 113/89 92 06/07/23 18:06 122 H 113/86 06/07/23 18:00 122 H 21 113/86 92 06/07/23 17:47 115 H 06/07/23 17:02 36.7 C 103 H 20 120/52 L 94 Room Air Laboratory Results Laboratory Results WBC 18.80 K/ul (4.8-10.8) H 06/07/23 17:16 RBC 4.61 M/uL (4.70-6.10) L 06/07/23 17:16 Hgb 14.3 g/dl (14.0-18.0) 06/07/23 17:16 Hct 43.0 % (42.0-52.0) 06/07/23 17:16 MCV 93.3 fL (80.0-100.0) 06/07/23 17:16 MCH 31.0 pg (25.0-34.0) 06/07/23 17:16 MCHC 33.3 g/dL (32.0-36.0) 06/07/23 17:16 RDW Std Deviation 42.9 fL (36.4-46.3) 06/07/23 17:16 RDW Coeff of Carlene 12.4 % (11.5-14.5) 06/07/23 17:16 Plt Count 236 K/uL (130-400) 06/07/23 17:16 MPV 11.2 fL (9.4-12.4) 06/07/23 17:16 Immature Gran % (Auto) 0.8 % 06/07/23 17:16 Neut % (Auto) 75.9 % 06/07/23 17:16 Lymph % (Auto) 14.9 % 06/07/23 17:16 [place] % (Auto) 8.0 % 06/07/23 17:16 Eos % (Auto) 0.2 % 06/07/23 17:16 Baso % (Auto) 0.2 % 06/07/23 17:16 Neut # (Auto) 14.27 K/uL (1.40-6.50) H 06/07/23 17:16 Lymph # (Auto) 2.81 K/uL (1.20-3.40) 06/07/23 17:16 [place] # (Auto) 1.50 K/uL (0.11-0.59) H 06/07/23 17:16 Eos # (Auto) 0.03 K/uL (0.00-0.50) 06/07/23 17:16 Baso # (Auto) 0.04 K/uL (0.00-0.20) 06/07/23 17:16 Immature Gran # (Auto) 0.15 K/uL (0.01-0.20) 06/07/23 17:16 PT 13.5 Seconds (9.0-12.0) H 06/07/23 17:16 INR 1.2 (0.9-1.1) H 06/07/23 17:16 APTT 26 Seconds (21-31) 06/07/23 17:16 PTT Ratio 0.9 06/07/23 17:16 Sodium 132 mmol/L (136-145) L 06/07/23 17:16 Potassium 4.6 mmol/L (3.5-5.1) 06/07/23 17:16 Chloride 97 mmol/L (98-107) L 06/07/23 17:16 Carbon Dioxide 26 mmol/L (21-32) 06/07/23 17:16 Anion Gap 9 (3-11) 06/07/23 17:16 BUN 17 mg/dl (6-23) 06/07/23 17:16 Creatinine 1.02 mg/dl (0.6-1.4) 06/07/23 17:16 Est Cr Clr Drug Dosing Not Reportable 06/07/23 17:16 Est GFR ( Amer) 76.8 ml/min 06/07/23 17:16 Est GFR (Non-Af Amer) 66.2 ml/min 06/07/23 17:16 BUN/Creatinine Ratio 16.7 (10-20) 06/07/23 17:16 Glucose 122 mg/dl (70-99(Fasting)) H 06/07/23 17:16 Calcium 9.8 mg/dl (8.6-10.3) 06/07/23 17:16 Phosphorus 3.5 mg/dl (2.5-4.9) 06/07/23 17:16 Magnesium 1.9 mg/dl (1.7-2.4) 06/07/23 17:16 Total Bilirubin 1.5 mg/dl (0.2-1.0) H 06/07/23 17:16 AST 11 U/L (13-39) L 06/07/23 17:16 ALT 11 U/L (7-52) 06/07/23 17:16 Alkaline Phosphatase 56 U/L (34-104) 06/07/23 17:16 Troponin I High Sens 9.7 pg/ml (0-20) 06/07/23 17:16 B-Natriuretic Peptide 218 pg/ml (0-100) H 06/07/23 17:16 Total Protein 6.6 gm/dl (6.0-8.3) 06/07/23 17:16 Albumin 3.6 gm/dl (3.4-5.0) 06/07/23 17:16 Globulin 3.0 gm/dl (2.5-4.0) 06/07/23 17:16 Albumin/Globulin Ratio 1.2 (0.9-2) 06/07/23 17:16 Lipase 14 U/L (11-82) 06/07/23 17:16 Procalcitonin 0.11 ng/ml (0-0.5) 06/07/23 19:02 Impressions Chest CTA 06/07/23 17:04 CT ANGIOGRAM OF THE CHEST CLINICAL HISTORY: Atypical chest pain. Dyspnea. COMPARISON STUDY: Chest CT dated 12/06/2011. Chest x-ray dated 06/07/2023. TECHNIQUE: Following the IV administration of 100 cc of Optiray 320, CT angiogram of the chest was performed from the upper abdomen to the thoracic inlet utilizing the pulmonary embolus protocol. Images are reviewed in the axial, sagittal, and coronal planes. 3-D MIPS images are created and assessed. IV contrast was administered without complication. A dose lowering technique was utilized adhering to the principles of ALARA. CT DOSE: 613.87 mGy.cm FINDINGS: Thyroid: Imaged portions of the thyroid gland are normal in size and attenuation. Thoracic aorta: There is atherosclerotic calcification of the thoracic aorta. There is no aneurysm and dilatation of the ascending thoracic aorta which measures up to 4.3 cm in diameter. The remainder of the thoracic aorta is normal in caliber, and the arch demonstrates standard 3-vessel anatomy. The thoracic aorta is not well-opacified. Pulmonary vasculature: The main pulmonary arteries are dilated suggesting pulmonary artery hypertension. There is pulmonary embolus within the distal right main pulmonary artery. This extends into the right upper, right middle, right lower lobe pulmonary arteries into segmental and subsegmental branches. There is also thrombus in the distal left main pulmonary artery. This extends into the left lower lobe pulmonary artery into segmental and subsegmental branches. There is also segmental and subsegmental pulmonary embolus within branches of the left upper lobe and lingular pulmonary artery. Heart: The heart is enlarged and without pericardial effusion. The coronary arteries and aortic valve leaflets are densely calcified. Lungs and pleural spaces: There are right larger than left pleural effusions with dependent consolidation. There is also peripheral wedge-shaped c onsolidation in the right upper lobe seen on image #136. The trachea and central airways are clear. Scattered calcified granulomas are observed. Mediastinum: A mildly enlarged prevascular node measures 12 mm in short axis. Dorota: Mildly enlarged hilar nodes measure up to 10 mm in short axis. Axillae: There is no axillary lymphadenopathy. Upper abdomen: Partially visualized upper abdominal viscera is within normal limits. Skeletal structures: The skeletal structures are osteopenic. Degenerative change is noted in the shoulders and spine. No lytic or blastic bony lesions are seen. IMPRESSION: 1. Extensive bilateral pulmonary embolus as above. 2. Cardiomegaly. 3. Right larger than left pleural effusions with dependent consolidation. Given the volume of thrombus this likely represents pulmonary infarcts. Correlate clinically for evidence of a superimposed pneumonia. Radiographic follow-up to resolution is recommended 4. There is mild aneurysmal dilatation of the ascending thoracic aorta which measures up to 4.3 cm. 5. Mildly enlarged mediastinal and hilar nodes are nonspecific and likely reactive. 6. Additional findings as above. ACT 112: Negative or not required by law. Electronically signed by: Naveen Loyd M.D. 06/07/2023 6:46 PM Chest X-Ray 06/07/23 17:04 SINGLE VIEW CHEST CLINICAL HISTORY: Atypical chest pain. FINDINGS: An AP, portable, upright chest radiograph is compared to chest x-ray and chest CT dated 12/06/2011. The heart is enlarged noting atherosclerotic calcification of the thoracic aorta. There is pulmonary vascular congestion. Chronic interstitial thickening is similar to previous. There are right larger than left pleural effusions with dependent consolidation. No pneumothorax is seen. The skeletal structures are osteopenic. The bony thorax is grossly intact. Advanced arthritic change is noted in the shoulders. IMPRESSION: 1. Cardiomegaly evidence of congestive failure. 2. Right larger than left effusions with dependent consolidation. Radiographic follow-up to resolution is recommended. ACT 112: Negative or not required by law. Electronically signed by: Naveen Loyd M.D. 06/07/2023 6:06 PM ECG Additional Comments: EKG reveals AF with rate of 135, no acute ischemic changes Code Status & VTE Plan VTE Prophylaxis Plan VTE Prophylaxis will be ordered: Yes PG Care Time/CCT Total # of Minutes Spent Total Time Spent with Patient: Total time spent is greater than 50% in coordination of care (as documented) at patient's floor/unit and/or counseling patient: Coding Level of Care Code 58321 INT INP/OBS CARE 3/75MIN Diagnoses Pulmonary embolism I26.99 Atrial fibrillation I48.91 Hypertension I10 Myasthenia gravis G70.00
[2023-06-07] MEDS: FUROSEMIDE 40 MG/4 ML VIAL IV ONE (19:50)
[2023-06-07] MEDS: Heparin IV Adult Wt-Based Standard *NO* INITIAL Bolus Protocol IV STA (20:01)
[2023-06-07] MEDS: Heparin IVP from UFH Protocol (WITH Bolus) IV ONE (20:32)
[2023-06-07] MEDS: HEPARIN SODIUM/DEXTROSE 25,000 UNITS/500 ML BAG IV SCH (20:33)
[2023-06-07] MEDS: HEPARIN SOD (PORCINE) 1000 UNIT/ML IV ONE (20:46)
[2023-06-07] MEDS: Heparin IV Adult Wt-Based Standard w/ INITIAL Bolus Protocol IV STA (20:46)
[2023-06-07] MEDS ORDERED: ONDANSETRON INJ 2 MG/ML 2 ML VIAL IV PRN (21:41)
[2023-06-07] MEDS ORDERED: oxyCODONE HCL IR 5 MG TAB (IMMEDIATE RELEASE) PO PRN (21:41)
[2023-06-07] MEDS ORDERED: ACETAMINOPHEN 325 MG TAB PO PRN (21:41)
[2023-06-07] MEDS: METOPROLOL SUCC 25MG EXT REL TAB PO SCH (22:17)
[2023-06-07] MEDS: MAGNESIUM SULFATE / D5W 1 GM/100 ML BAG IV ONE (22:17)
[2023-06-08 02:34] LABS: Hematocrit (blood only) 36.8 % (42.0-52.0); Hemoglobin 12.8 g/dl (14.0-18.0); Mean Corpuscular Hemoglobin 31.4 pg (25.0-34.0); Mean Corpuscular Hgb Conc 34.8 g/dL (32.0-36.0); Mean Corpuscular Volume 90.2 fL (80.0-100.0); Mean Platelet Volume 11.4 fL (9.4-12.4); Platelet Count 203 K/uL (130-400); RDW Coefficient of Variation 12.3 % (11.5-14.5); RDW Standard Deviation 40.7 fL (36.4-46.3); Red Blood Count 4.08 M/uL (4.70-6.10); White Blood Count 14.81 K/ul (4.8-10.8)
[2023-06-08 03:00] LABS: Albumin Level 3.1 gm/dl (3.4-5.0); BUN Creatinine Ratio 17.6 (10-20); Bilirubin Direct 0.1 mg/dl (0-0.2); Bilirubin,Total 0.9 mg/dl (0.2-1.0); Calcium 8.8 mg/dl (8.6-10.3); Creatinine Clr Calc Pharmacy 80.5 ml/min; Est GFR (African American) 100.2 ml/min; Est GFR (Non-African American) 86.5 ml/min; Potassium 3.9 mmol/L (3.5-5.1); Total Protein 5.6 gm/dl (6.0-8.3)
[2023-06-08 03:04] LABS: ANTI-Xa, UFH(UnfractionatedHep 0.38 IU/ml (0.3-0.7)
[2023-06-08 05:11] LABS: Appearance Urine Clear (Clear); Bilirubin Urine Negative (Negative); Blood Urine Negative (Negative); Color Urine Dark Yellow; Glucose Urine UA Negative (Negative); Ketones Urine 1+ (Negative); Leukocyte Esterase Urine Negative (Negative); Nitrite Urine Negative (Negative); Protein Urine Negative (Negative); Specific Gravity Urine > 1.045 (1.000-1.030); Urobilinogen Urine Negative (Negative); pH Urine 5.5 (4.5-7.5)
[2023-06-08 06:21] LABS: ANTI-Xa, UFH(UnfractionatedHep 0.24 IU/ml (0.3-0.7)
[2023-06-08] MEDS: MYCOPHENOLATE MOFETIL 250 MG CAP PO SCH (09:37)
[2023-06-08] MEDS: FOLIC ACID 1 MG TAB PO SCH (09:37)
[2023-06-08] MEDS: predniSONE 10 MG TABLET PO SCH (09:37)
--- NOTE | 2023-06-08 11:16 | Hospitalist Progress Note ---
Date of Service June 08, 2023 Assessment & Plan (1) Pulmonary embolism: Plan: 87yo male presenting with 5 days of progressive dyspnea on exertion. Patient found to have extensive bilateral PEs with likely pulmonary infarction. Patient with high risk PESI score (116 - based on age, gender, HR >110). He is currently saturating well on room air. He does have some pleuritic pain in his back bilaterally likely corresponding with his PEs/pulmonary infarcts. 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 Recent Covid-19 illness and has been somewhat sedentary. Initially started on heparin by weight, this has been transitioned to oral Eliquis 10 mg twice daily for 7 days Will obtain 2D echo to check for right ventricular heart strain (2) Atrial fibrillation: Plan: Patient follows with Cardiology for management of his chronic health issues. He has been noted to have frequent PVCs but has not had atrial fibrillation in the past. He is on Metoprolol daily for his PVCs. Electrolytes WNL. -Check TSH -Continue Metoprolol succinate 25mg po daily (3) Hypertension: Plan: Patient with well controlled hypertension -Continue Metoprolol -Continue Amlodipine -Monitor (4) Myasthenia gravis: Plan: Chronic. Stable -Continue mycophenolate Mofetil and Folic acid at home dose -Continue Prednisone alternating 5 - 10mg daily Plan F/E/N - Saline lock. Electrolytes WNL. Heart healthy diet as tolerated Ppx - On heparin gtt as above Code - Full code per discussion with patient at time of admission Dispo -hopefully discharge in next 24 to 48 hours after transitioning to p.o. Eliquis Admission and Anticipated Discharge Date Admission Date: June 07, 2023 Subjective Patient seen and examined, complains of some pleuritic lower back pain. However denies chest pain or shortness of breath Review of Systems Review of Systems: All systems reviewed are negative, apart from the ones contained in the history. Physical Exam Physical Exam: The patient is awake, alert and oriented 3, well developed and well nourished, normocephalic and atraumatic, lying in bed and in no acute distress. HEENT--PERRL, EOMI, mucous membranes and oropharynx mildly dry Neck--supple. No JVD. No bruits. Thyroid normal, trachea midline, no adenopathy. Heart--normal S1 and S2. No murmurs, rubs or gallops. Lungs--clear bilaterally, no respiratory distress, no accessory muscle use. Abdomen--normal bowel sounds and soft. Extremities--no cyanosis or clubbing. No edema. Dermatologic--normal skin turgor, normal color, no abnormal lymph nodes, no rash. Neurologic--cranial nerves II through XII grossly intact. Rheumatologic--normal range of motion. Psychiatric--normal affect. Results & Data Results & Data Vital Signs (Past 12 Hours) Vital Signs Temp Pulse Pulse Resp BP Pulse Ox O2 Del Method 06/08/23 08:06 118 H 06/08/23 08:00 97.5 F L 96 H 18 115/73 93 Room Air 06/08/23 02:56 97.5 F L 97 H 18 132/82 97 Room Air 06/07/23 23:13 112 H PG Care Time/CCT Total # of Minutes Spent Total Time Spent with Patient: Total time spent is greater than 50% in coordination of care (as documented) at patient's floor/unit and/or counseling patient: Coding Level of Care Code 87629 SUB INP/OBS CARE 2/35MIN Diagnoses Pulmonary embolism I26.99 Atrial fibrillation I48.91 Hypertension I10 Myasthenia gravis G70.00 Time Spent (min) 35
[2023-06-08] MEDS: APIXABAN 5 MG TABLET PO SCH (12:21)
--- NOTE | 2023-06-08 12:48 | Electrocardiogram Report ---
Test Reason : Blood Pressure : / mmHG Vent. Rate : 135 BPM Atrial Rate : 000 BPM P-R Int : 000 ms QRS Dur : 090 ms QT Int : 256 ms P-R-T Axes : 000 028 065 degrees QTc Int : 384 ms Atrial fibrillation with rapid ventricular response Abnormal ECG When compared with ECG of 05-OCT-2013 15:41, Atrial fibrillation has replaced Sinus rhythm Vent. rate has increased BY 53 BPM Confirmed by Sher Reis ([id number]) on 06/08/2023 12:48:26 PM Referred By: Sher Scales Confirmed By:Sher Reis
[2023-06-08 13:25] LABS: ANTI-Xa, UFH(UnfractionatedHep 0.22 IU/ml (0.3-0.7)
--- NOTE | 2023-06-08 14:32 | XCELERA ---
[id number]
[2023-06-08] MEDS: amLODIPine BESYLATE 5 MG TAB PO SCH (20:32)
[2023-06-09 06:48] LABS: Hematocrit (blood only) 36.3 % (42.0-52.0); Hemoglobin 12.6 g/dl (14.0-18.0); Mean Corpuscular Hemoglobin 31.3 pg (25.0-34.0); Mean Corpuscular Hgb Conc 34.7 g/dL (32.0-36.0); Mean Corpuscular Volume 90.3 fL (80.0-100.0); Mean Platelet Volume 11.6 fL (9.4-12.4); Platelet Count 233 K/uL (130-400); RDW Coefficient of Variation 11.9 % (11.5-14.5); RDW Standard Deviation 39.8 fL (36.4-46.3); Red Blood Count 4.02 M/uL (4.70-6.10)
[2023-06-09 07:17] LABS: BUN Creatinine Ratio 16.9 (10-20); Calcium 8.6 mg/dl (8.6-10.3); Creatinine Clr Calc Pharmacy 77.1 ml/min; Est GFR (African American) 98.5 ml/min; Potassium 3.4 mmol/L (3.5-5.1)
[2023-06-09] MEDS: predniSONE 5 MG TAB PO SCH (08:06)
[2023-06-09] MEDS: LOPERAMIDE HCL 2 MG CAP PO PRN (08:18)
--- NOTE | 2023-06-09 10:56 | Discharge Summary ---
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 Patient had Covid-19 3 weeks ago (05/20/23). His symptoms were relatively mild - he did not require oxygen or hospitalization and was not treated with any anti- viral agents. He felt like he was recovering well until 06/03/23 when he developed worsening dyspnea on exertion as well as profound fatigue and generalized weakness. Also with worsening appetite, decreased oral intake and shooting pain in his lower back L>R and lower abdomen. The pain is worse with motion and deep breaths. Patient with chronic bilateral LE edema which he reports as fairly stable. He has intermittent diarrhea which he notes is likely secondary to his medications - no blood or mucus. He denies fever, chills, chest pain or palpitations. No dizziness, syncope, vomiting. Patient was seen by his doctor today for the complaint of dyspnea. Noted to be in irregularly irregular rhythm. Upon arrival to the ER he was found to be in atrial fibrillation with RVR - rate 93 - 122 ER Course: Metoprolol 5mg IV Ceftriaxone 2gm Doxycycline 100mg Heparin ordered - not yet started Principal Diagnosis acute PE Discharge Exam The patient is awake, alert and oriented 3, well developed and well nourished, normocephalic and atraumatic, lying in bed and in no acute distress. HEENT--PERRL, EOMI, mucous membranes and oropharynx mildly dry Neck--supple. No JVD. No bruits. Thyroid normal, trachea midline, no adenopathy. Heart--normal S1 and S2. No murmurs, rubs or gallops. Lungs--clear bilaterally, no respiratory distress, no accessory muscle use. Abdomen--normal bowel sounds and soft. Extremities--no cyanosis or clubbing. No edema. Dermatologic--normal skin turgor, normal color, no abnormal lymph nodes, no rash. Neurologic--cranial nerves II through XII grossly intact. Rheumatologic--normal range of motion. Psychiatric--normal affect. Discharge Data Allergies Allergy/AdvReac Type Severity Reaction Status Date / Time ciprofloxacin Allergy Intermediate RASH Verified 06/07/23 18:55 Consultations 06/07/23 19:07 ED Decision to Admit Stat Ordered Studies 06/07/23 17:04 CT angio chest PE protocol Stat Hospital Course (1) Pulmonary embolism: 87yo male presenting with 5 days of progressive dyspnea on exertion. Patient found to have extensive bilateral PEs with likely pulmonary infarction. Patient with high risk PESI score (116 - based on age, gender, HR >110). He is currently saturating well on room air. He does have some pleuritic pain in his back bilaterally likely corresponding with his PEs/pulmonary infarcts. 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 Recent Covid-19 illness and has been somewhat sedentary. Initially started on heparin by weight, this has been transitioned to oral Eliquis 10 mg twice daily for 7 days 2D echo did not show any evidence of right ventricular heart strain (2) Atrial fibrillation: Patient follows with Cardiology for management of his chronic health issues. He has been noted to have frequent PVCs but has not had atrial fibrillation in the past. He is on Metoprolol daily for his PVCs. Electrolytes WNL. -Check TSH -Continue Metoprolol succinate 25mg po daily -Continue to follow up with cardiology outptient (3) Hypertension: Patient with well controlled hypertension -Continue Metoprolol -Continue Amlodipine -Monitor (4) Myasthenia gravis: Chronic. Stable -Continue mycophenolate Mofetil and Folic acid at home dose -Continue Prednisone alternating 5 - 10mg daily Plan F/E/N - Saline lock. Electrolytes WNL. Heart healthy diet as tolerated Ppx - On heparin gtt as above Code - Full code per discussion with patient at time of admission Dispo -hopefully discharge in next 24 to 48 hours after transitioning to p.o. Eliquis Total Time Total Time Spent Total Time Spent (In Minutes): 35 Discharge Plan Discharge Items Patient Disposition: Home - Self-Care Reason For Visit: SOB, PES, NEW A-FIB Discharge Diagnosis: PE, afib Activity: Per Instructions section Lifting: Gradually increase as tolerated Driving/Machine Use: No limitations Non-emergency contact: Primary Care Provider and Call Centre Supervisor Call non-emergency contact if: you have any medication questions Follow-up/Referrals: Sher Scales MD [Primary Care Provider] - Diet: Regular Addtl Attending Provider Instructions: Please make appointment to follow up with a assembler deck and hull to follow up your new onset Afib Pending Studies at Discharge: No Stand-Alone Forms: My [facility] [employer], Smoking Cessation Medications and DC Order Prescriptions: New Eliquis 5 mg (74 tabs) tablets,dose pack 5 mg PO BID Qty: 74 0RF Rx Instructions: 10mg BID for 9 days, then 5mg BID Continued metoprolol succinate 25 mg tablet extended release 24 hr 25 mg PO DAILY Qty: 90 3RF amlodipine 5 mg tablet 5 mg PO HS Qty: 90 3RF cholecalciferol (vitamin D3) 50 mcg (2,000 unit) capsule 2,000 unit PO DAILY cyanocobalamin (vitamin B-12) [Vitamin B-12] 1,000 mcg Tablet 1,000 mcg PO QAM folic acid 1 mg Tablet 1 mg PO QAM prednisone 10 mg tablet 5 - 10 mg PO Q OTHER DAY Rx Instructions: 5 mg alt with 10mg PO every other day; mycophenolate mofetil [CellCept] 500 mg tablet 500 mg PO DAILY Discharge Orders: Discharge Order (Routine); Ordered 06/09/23 Ordered By: Michael Bahena Admission Data Admit Date/Time: 06/07/23 19:41 Attending Provider: Michael Bahena Admit Provider: Treasure Jung Primary Care Provider: Sher Scales Other Providers: Treasure Jung Coding Level of Care Code 22162 INP/OBS DISCH >30 MIN Diagnoses Pulmonary embolism I26.99 Atrial fibrillation I48.91 Hypertension I10 Myasthenia gravis G70.00 Time Spent (min) 35
== END 2023-06-09 12:46 | disposition home or self-care (01) | DRG 176 ==
LOC: SUATTDRO → ED 16:35 → SUATTDRO 19:41 → 2E 19:41

== ENCOUNTER 2023-08-15 17:28 | Inpatient (IN) ==
[2023-08-15 17:58] LABS: iSTAT Creatinine 0.8 mg/dl (0.6-1.3); iSTAT Ionized Calcium 1.21 mmol/l (1.12-1.32); iSTAT Potassium 4.1 mmol/L (3.3-5.0)
[2023-08-15 18:02] LABS: Basophils # (auto) 0.03 K/uL (0.00-0.20); Basophils % (auto) 0.3 %; Eosinophils # (auto) 0.08 K/uL (0.00-0.50); Eosinophils % (auto) 0.8 %; Hematocrit (blood only) 46.5 % (42.0-52.0); Hemoglobin 15.5 g/dl (14.0-18.0); Immature Granulocytes # (auto) 0.03 K/uL (0.01-0.20); Immature Granulocytes % (auto) 0.3 %; Lymphocytes # (auto) 2.66 K/uL (1.20-3.40); Lymphocytes % (auto) 26.7 %; Mean Corpuscular Hemoglobin 30.9 pg (25.0-34.0); Mean Corpuscular Hgb Conc 33.3 g/dL (32.0-36.0); Mean Corpuscular Volume 92.8 fL (80.0-100.0); Mean Platelet Volume 11.8 fL (9.4-12.4); Monocytes # (auto) 0.71 K/uL (0.11-0.59); Monocytes % (auto) 7.1 %; Neutrophils # (auto) 6.46 K/uL (1.40-6.50); Neutrophils % (auto) 64.8 %; Platelet Count 154 K/uL (130-400); RDW Coefficient of Variation 14.3 % (11.5-14.5); RDW Standard Deviation 49.1 fL (36.4-46.3); Red Blood Count 5.01 M/uL (4.70-6.10); White Blood Count 9.97 K/ul (4.8-10.8)
[2023-08-15] MEDS: OPTIRAY 320 100ml IV ONE (18:11)
[2023-08-15 18:15] LABS: BUN Creatinine Ratio 18.8 (10-20); Calcium 9.6 mg/dl (8.6-10.3); Creatinine Clr Calc Pharmacy 64.4 ml/min; Est GFR (African American) 91.4 ml/min; Est GFR (Non-African American) 78.9 ml/min; Potassium 4.1 mmol/L (3.5-5.1)
--- NOTE | 2023-08-15 18:17 | Emergency Department Note ---
History of Present Illness General Chief complaint: Syncope Stated complaint: HEAD LAC, BLEEDING, BLOOD THINNERS Time Seen by Provider: 08/15/23 17:35 History of Present Illness Provider complaint: Fall syncope Onset (ago): minute(s) 45 Location: head Maximum Pain Intensity: 3 87-year-old male presents emergency department for fall and syncope. Patient reports he went downstairs to change 1 and his dehumidifier and then suddenly passed out. He states he fell and hit his head. Patient is on Eliquis. Patient is reporting pain in his occipital area. No neck pain. No chest pain or difficulty breathing. No nausea vomiting or diarrhea. Home Medications Medication Instructions Recorded Confirmed Type cyanocobalamin (vitamin B-12) 1,000 mcg PO QAM 01/10/19 08/15/23 History 1,000 mcg tablet (Vitamin B-12) folic acid 1 mg tablet 1 mg PO QAM 01/10/19 08/15/23 History prednisone 10 mg tablet 5 - 10 mg PO Q OTHER DAY 11/01/19 08/15/23 History apixaban 5 mg tablet (Eliquis) 5 mg PO BID #180 tabs 06/15/23 08/15/23 Rx metoprolol succinate 25 mg 25 mg PO BID #180 tabs 07/22/23 08/15/23 Rx tablet,extended release 24 hr mycophenolate mofetil 500 mg tablet 500 mg PO QAM 08/15/23 08/15/23 History Allergies Allergy/AdvReac Type Severity Reaction Status Date / Time ciprofloxacin Allergy Intermediate RASH Verified 08/15/23 19:57 Past Med/Surg History Problem List (Updated 08/15/23 @ 21:18 by Andre Silva MD) LBBB (left bundle branch block) (Acute) Laceration of scalp (Acute) CHI (closed head injury) (Acute) Syncope (Acute) Syncope and collapse Pleural effusion Persistent atrial fibrillation Severe aortic stenosis Syncope Shortness of breath (Acute) Pulmonary embolism, bilateral (Acute) Pulmonary embolism (2016) 2016--unknown cause;not on any blood thinners Atrial fibrillation Myofascial pain Ambulatory dysfunction Chronic steroid use Postlaminectomy syndrome of lumbosacral region Sacroiliitis Leg length discrepancy Chronic steroid use Venous insufficiency Frequent PVCs Moderate mitral regurgitation by prior echocardiogram Bradyarrhythmia Generalized osteoarthritis (Acute) Irritable bowel syndrome with diarrhea Hepatic cyst Adenomatous polyp of colon Pancreatic cyst (Acute) Osteopenia (Acute) Hyperlipidemia (Acute) Hyperglycemia (Acute) Hypertension Myasthenia gravis Medical History Atrial fibrillation with RVR Cervical radiculopathy at C5 Hammer toe 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 melanoma of left lower leg Asthma in the past; no inhalers/nebulizers/no issues Surgical History History of hammertoe correction right foot History of lumbar spinal fusion x2 History of repair of right rotator cuff x2 History of repair of left rotator cuff History of total right hip replacement History of arthroscopy of right knee History of total right knee replacement (TKR) Hx of vasectomy History of ERCP biopsy tumor of pancreas--benign History of melanoma excision x2 History of wisdom tooth extraction History of bilateral cataract extraction Family History Mother Breast cancer Father , AGE 83 CHF (congestive heart failure) Hypertension Myocardial infarction Grandmother (Maternal) , AGE 56 Stroke Brother , AGE 75 Stroke Grandfather (Maternal) Valvular heart disease Other Crohn's disease Denies family history of Colon cancer Ovarian cancer Prostate cancer Colorectal cancer Ulcerative colitis Social History Smoking Status: Former smoker packs per day: 0.75; Second Hand Exposure: Yes ( smoked/father smoked); Hx Alcohol Use: No Hx Substance Use: No Preferred Language: Palestinian Communication Ability: Effective Visual Impairment: No Limitations Hearing Ability: Use of Hearing Aid Licensed Practical Nurse Clinic Nurse Required: No Beliefs That Will Affect Care: None marital status: Current Living Situation: Spouse current occupational status: retired 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 Feels Safe at Home: Yes Dental Care, Regularly: Yes Physical Activity Frequency: Daily Seatbelt Use: always Assistive Devices: None Physical Exam Vital Signs Vital Signs - 24 hr 08/15/23 17:31 08/15/23 17:44 08/15/23 17:57 Temperature 36.8 C Temperature Source Temporal Artery Scan Pulse Rate 102 H 103 H 93 H Pulse Rate from SpO2 Sensor 95 H Pulse Rhythm Regular Pulse Strength Normal Respiratory Rate 18 15 Respiratory Effort / Characteristics Non-Labored Spontaneous Respiratory Depth Normal Respiratory Pattern Regular Blood Pressure 147/107 H Blood Pressure Mean 120 Blood Pressure Position Sitting Pulse Oximetry 96 95 Oxygen Delivery Method Room Air Room Air Sepsis Recent Fever Within 48 Hours No Sepsis New/Unexplained Change in Mental Status No Sepsis Action Taken by Nursing No Action Required 08/15/23 18:33 08/15/23 18:45 08/15/23 18:51 Temperature Temperature Source Pulse Rate 100 H 96 H 99 H Pulse Rate from SpO2 Sensor 96 H 98 H 98 H Pulse Rhythm Pulse Strength Respiratory Rate 16 18 16 Respiratory Effort / Characteristics Respiratory Depth Respiratory Pattern Blood Pressure 147/87 H Blood Pressure Mean 107 Blood Pressure Position Pulse Oximetry 95 94 96 Oxygen Delivery Method Room Air Sepsis Recent Fever Within 48 Hours Sepsis New/Unexplained Change in Mental Status Sepsis Action Taken by Nursing 08/15/23 19:00 08/15/23 19:18 08/15/23 19:21 Temperature Temperature Source Pulse Rate 96 H 92 H 107 H Pulse Rate from SpO2 Sensor 94 H 100 H 99 H Pulse Rhythm Pulse Strength Respiratory Rate 17 17 23 Respiratory Effort / Characteristics Respiratory Depth Respiratory Pattern Blood Pressure 147/99 H Blood Pressure Mean 115 Blood Pressure Position Pulse Oximetry 95 96 90 Oxygen Delivery Method Room Air Sepsis Recent Fever Within 48 Hours Sepsis New/Unexplained Change in Mental Status Sepsis Action Taken by Nursing 08/15/23 19:30 08/15/23 19:54 08/15/23 20:00 Temperature Temperature Source Pulse Rate 85 95 H Pulse Rate from SpO2 Sensor 106 H 91 H Pulse Rhythm Pulse Strength Respiratory Rate 14 Respiratory Effort / Characteristics Respiratory Depth Respiratory Pattern Blood Pressure 169/118 H 143/104 H Blood Pressure Mean 126 117 Blood Pressure Position Pulse Oximetry 93 96 Oxygen Delivery Method Room Air Sepsis Recent Fever Within 48 Hours Sepsis New/Unexplained Change in Mental Status Sepsis Action Taken by Nursing 08/15/23 20:12 08/15/23 20:15 08/15/23 20:33 Temperature Temperature Source Pulse Rate 91 H 87 94 H Pulse Rate from SpO2 Sensor 93 H 96 H 97 H Pulse Rhythm Pulse Strength Respiratory Rate 11 L Respiratory Effort / Characteristics Respiratory Depth Respiratory Pattern Blood Pressure 155/102 H Blood Pressure Mean 119 Blood Pressure Position Pulse Oximetry 96 93 97 Oxygen Delivery Method Room Air Sepsis Recent Fever Within 48 Hours Sepsis New/Unexplained Change in Mental Status Sepsis Action Taken by Nursing Physical Exam HENT: Exam performed. - Head: 2 Scalp laceration to the occiput. Laceration #1: 10 cm irregular. Laceration #2 inferior to laceration #1: 3 cm EYES: Conjunctivae and EOM are normal. Pupils are equal, round, and reactive to light. Right eye exhibits no discharge. Left eye exhibits no discharge. No scleral icterus. NECK: Normal range of motion. Neck supple. No JVD present. No spinous process tenderness present. CV: Tachycardic rate, irregular rhythm, normal heart sounds and intact distal pulses. There is no peripheral edema. Palpable radial pulses bue. PULM/CHEST: Effort normal and breath sounds normal. No respiratory distress. No stridor. He has no wheezes. He has no rales. ABD: The abdomen is soft. There is no tenderness. There is no rebound, no guarding. MUSC/SKEL: Pelvis stable. NEURO: He is alert and oriented to person, place, and time. He has normal strength. No cranial nerve deficit or sensory deficit. Coordination normal. GCS eye subscore is 4. GCS verbal subscore is 5. GCS motor subscore is 6. Cerebellar tests wnl. SKIN: Skin is warm and dry. He is not diaphoretic. PSYCH: He has a normal mood and affect. Behavior is normal. Judgment and thought content normal. Procedures Laceration Laceration 1: Site: scalp Size (cm): 10 Description: stellate Local Anesthetic: lidocaine 1% and with epi Amount of anesthesia used (mL): 7 Pre-repair: irrigated extensively and deep structures intact Skin layer closed with: other ([place]) Number of sutures: 10 Laceration 2: Site: scalp Description: linear Local Anesthetic: lidocaine 1% and with epi Amount of anesthesia used (mL): 3 Skin layer closed with: other ([place]) Number of sutures: 3 Course Course 173: The patient was evaluated in room B12. A complete history and physical exam was performed Cardiac monitoring: An order was placed for continuous cardiac monitoring. The monitor shows a rate of 110 with atrial fibrilation rhythm interpreted by me 1910: Vital signs stable. Labs within normal limits. Imaging shows no traumatic injury. Lacerations were closed, see procedure note. Given the patient's new left bundle branch block and recurrent syncopal episodes [facility]. Administered Medications Magnesium Sulfate/Dextrose (Magnesium Sulfate / D5w) 1 gm in 100 mls @ 50 mls/hr IV ONE ONE Stop: 08/15/23 22:14 Last Admin: 08/15/23 20:51 Dose: 50 mls/hr Documented By: LYDIA Discontinued Medications Ioversol (Optiray 320 100ml) 91 ml IV ONCE ONE Stop: 08/15/23 18:12 Last Admin: 08/15/23 18:11 Dose: 91 ml Documented By: OLGA Lidocaine/Epinephrine (Lidocaine 2%/Epinephrine 1:100,000 20ml) 20 ml INFIL ONE ONE Stop: 08/15/23 17:42 Last Admin: 08/15/23 18:28 Dose: 20 ml Documented By: [facility] [place] Medical Decision Making Laboratory Data Attestation: I reviewed the patient's lab results. 08/15/23 17:44 08/15/23 17:44 Lab Results 08/15/23 08/15/23 Range/Units 17:44 17:46 WBC 9.97 (4.8-10.8) K/ul RBC 5.01 (4.70-6.10) M/uL Hgb 15.5 (14.0-18.0) g/dl POC Hgb 16.0 (14.0-18.0) g/dl Hct 46.5 (42.0-52.0) % POC Hct 47 (42-52) % MCV 92.8 (80.0-100.0) fL MCH 30.9 (25.0-34.0) pg MCHC 33.3 (32.0-36.0) g/dL RDW Std Deviation 49.1 H (36.4-46.3) fL RDW Coeff of Carlene 14.3 (11.5-14.5) % Plt Count 154 (130-400) K/uL MPV 11.8 (9.4-12.4) fL Immature Gran % (Auto) 0.3 % Neut % (Auto) 64.8 % Lymph % (Auto) 26.7 % Dougherty % (Auto) 7.1 % Eos % (Auto) 0.8 % Baso % (Auto) 0.3 % Neut # (Auto) 6.46 (1.40-6.50) K/uL Lymph # (Auto) 2.66 (1.20-3.40) K/uL Dougherty # (Auto) 0.71 H (0.11-0.59) K/uL Eos # (Auto) 0.08 (0.00-0.50) K/uL Baso # (Auto) 0.03 (0.00-0.20) K/uL Immature Gran # (Auto) 0.03 (0.01-0.20) K/uL PT 12.1 H (9.0-12.0) Seconds INR 1.1 (0.9-1.1) APTT 24 (21-31) Seconds PTT Ratio 0.9 POC Sodium 137 (135-144) mmol/L Sodium 137 (136-145) mmol/L POC Potassium 4.1 (3.3-5.0) mmol/L Potassium 4.1 (3.5-5.1) mmol/L POC Chloride 104 (101-112) mmol/L Chloride 103 (98-107) mmol/L Carbon Dioxide 23 (21-32) mmol/L POC Total CO2 21 L (24-31) mmol/L Anion Gap 11 (3-11) POC Anion Gap 18.0 (16-25) mmol/L POC BUN 14 (7-18) mg/dl BUN 16 (6-23) mg/dl Creatinine 0.85 (0.6-1.4) mg/dl POC Creatinine 0.8 (0.6-1.3) mg/dl Est Cr Clr Drug Dosing 64.4 ml/min Est GFR ( Amer) 91.4 ml/min Est GFR (Non-Af Amer) 78.9 ml/min BUN/Creatinine Ratio 18.8 (10-20) Glucose 120 H (70-99(Fasting)) mg/dl POC Glucose (other) 123 H (70-99) mg/dl Calcium 9.6 (8.6-10.3) mg/dl POC Ioniz Calcium Alexa 1.21 (1.12-1.32) mmol/l Magnesium 1.9 (1.7-2.4) mg/dl Troponin I High Sens 10.5 (0-20) pg/ml Lipase 17 (11-82) U/L Imaging Data Attestation: I personally reviewed and interpreted this imaging study as follows: My Impression: Chest x-ray negative. Airway clear. No pneumothorax. No consolidation. No cardiomegaly or cephalization.. No free air under the diaphragm. No fractures of the skeletal structures. Zio patch on left-sided chest wall. Radiologist's Impression: Chest X-Ray 08/15/23 17:42 XR chest 1V portable CLINICAL HISTORY: Chest pain, nonspecific TECHNIQUE: Single frontal radiograph of the chest was obtained. Comparison: Comparison is made to chest radiograph 08/12/2023 FINDINGS: No lines and tubes are seen. Cardiomegaly is noted. The lungs are clear. Blunting of the right costophrenic angle is seen compatible with scarring seen on prior exam. IMPRESSION: No acute chest disease. Cardiomegaly is noted. ACT 112: Negative or not required by law. Electronically signed by: Kan Douglas M.D. 08/15/2023 7:40 PM Abdomen/Pelvis CT 08/15/23 17:43 CT abd pelvis IV con only CLINICAL HISTORY: fall TECHNIQUE: Helical axial images of the abdomen and pelvis were obtained and displayed. Automated dose lowering techniques and/or adjustment according to patient size were utilized for this exam. This exam was performed with intravenous contrast. COMPARISON: Comparison is made to CT abdomen pelvis 08/14/2011 FINDINGS: Lower chest: Trace right pleural effusion. Cardiomegaly is incidentally noted. Liver: Subcentimeter hypodensities in the liver are too small to characterize. Gallbladder and biliary tree: No calcified gallstones. Normal caliber wall. No intra- or extrahepatic biliary ductal dilation. Pancreas: Unremarkable, no focal lesions. Spleen: Splenule is incidentally noted. Adrenals: Unremarkable. Kidneys and ureters: Unremarkable. Bladder: Unremarkable. Reproductive organs: Unremarkable. Bowel: Diverticulosis is seen without diverticulitis. The appendix is normal. There is a small hiatal hernia. Lymph nodes Retroperitoneal: Unremarkable. Pelvic: Unremarkable. Mesenteric: Unremarkable. Peritoneum: Normal. Vessels: Atherosclerotic calcifications are seen. Abdominal wall: Unremarkable. Bones: Right hip total arthroplasty is seen. Posterior fixation hardware spans L3-S1. HEALED fractures are seen in the left anterior ribs. IMPRESSION: 1. No acute abnormality and in particular no evidence of acute fracture. 2. There is a trace right pleural effusion. ACT 112: Negative or not required by law. Electronically signed by: Kan Douglas M.D. 08/15/2023 6:[address] 08/15/23 17:43 CT cervical spine wo con CLINICAL HISTORY: fall TECHNIQUE: Multidetector row helical CT of the cervical spine was performed without administration of intravenous contrast. Coronal and sagittal reformations were obtained. Automated dose lowering techniques and/or adjustment according to patient size were utilized for this exam. Comparison: Comparison is made to cervical spine radiographs 09/01/2012 FINDINGS: No acute fractures or subluxations are identified. Degenerative changes are seen in the visualized spine. Calcification of the transverse ligament is seen. The alignment is normal. Soft tissues are unremarkable. IMPRESSION: Degenerative changes without evidence of acute bony injury. ACT 112: Negative or not required by law. Electronically signed by: Kan Douglas M.D. 08/15/2023 6:[address] 08/15/23 17:43 CT head/brain wo con CLINICAL HISTORY: fall Technique: Contiguous axial CT images of the head were acquired from the base of the skull to the vertex without intravenous contrast administration. Images were viewed in brain, subdural and bone windows. Automated dose lowering techniques and/or adjustment according to patient size were utilized for this exam. Comparison: None available at the time of this dictation. Findings: The ventricles, basal cisterns, and cerebral sulci are normal. There is no acute intracranial hemorrhage or evidence of acute territorial infarction. Neither mass effect, shift of the midline structures, nor abnormal extra-axial fluid collections are shown. Imaged portions of the paranasal sinuses and mastoid air cells are clear. The orbits appear normal. There are no acute fractures of the calvaria. Scalp swelling is seen in the right posterior soft tissues. Impression: No acute intracranial hemorrhage or skull fractures. Scalp swelling is seen in the right posterior soft tissues. ACT 112: Negative or not required by law. Electronically signed by: Kan Douglas M.D. 08/15/2023 6:41 PM ECG Data Attestation: I personally reviewed and interpreted this ECG as follows: Additional Comments: EKG #1 at 1739: Atrial fibrillation with a rate of 118. QRS 134 QTc 496. Left bundle branch block present. PVCs present. sgarbosa negative EKG #2 at 1825: Atrial fibrillation with a rate of 93. QRS 140 QTc 499. Left bundle branch block present. sgarbosa negative [facility] Narrative 1735: The patient was evaluated in room B12. A complete history and physical exam was performed Cardiac monitoring: An order was placed for continuous cardiac monitoring. The monitor shows a rate of 110 with atrial fibrilation rhythm interpreted by me 1910: Vital signs stable. Labs within normal limits. Imaging shows no traumatic injury. Lacerations were closed, see procedure note. Given the patient's new left bundle branch block and recurrent syncopal episodes patient will be admitted to the [facility] hospitalist team. Impression & Plan Syncope, CHI (closed head injury), Laceration of scalp, LBBB (left bundle branch block) Discharge Plan Visit Data Chief Complaint: Syncope Stated Complaint: HEAD LAC, BLEEDING, BLOOD THINNERS ED Provider: Andre Silva Discharge Problem: Syncope, CHI (closed head injury), Laceration of scalp, LBBB (left bundle branch block) Patient Disposition: Admitted As Inpatient Forms Stand Alone Forms: My [facility] Prescriptions Prescriptions: No Action metoprolol succinate 25 mg tablet extended release 24 hr 25 mg PO BID Qty: 180 3RF Eliquis 5 mg tablet 5 mg PO BID Qty: 180 3RF cyanocobalamin (vitamin B-12) [Vitamin B-12] 1,000 mcg Tablet 1,000 mcg PO QAM folic acid 1 mg Tablet 1 mg PO QAM prednisone 10 mg tablet 5 - 10 mg PO Q OTHER DAY Rx Instructions: 5 mg alt with 10mg PO every other day; mycophenolate mofetil 500 mg tablet 500 mg PO QAM Referrals Referrals: Pro,Sher Patel MD [Primary Care Provider] -
[2023-08-15 18:22] LABS: Troponin I High Sensitivity 10.5 pg/ml (0-20)
[2023-08-15 18:26] LABS: INR 1.1 (0.9-1.1); Partial Thromboplastin Ratio 0.9; Partial Thromboplastin Time 24 Seconds (21-31); Prothrombin Time 12.1 Seconds (9.0-12.0)
[2023-08-15] MEDS: LIDOCAINE 2%/EPINEPHRINE 1:100,000 20ML INFIL ONE (18:28)
--- NOTE | 2023-08-15 18:42 | CT Scan Report ---
CT head/brain wo con CLINICAL HISTORY: fall Technique: Contiguous axial CT images of the head were acquired from the base of the skull to the les nazario without intravenous contrast administration. Images were viewed in brain, subdural and bone [facility] . Automated dose lowering techniques and/or adjustment according to patient size were utilized for this exam. Comparison: None available at the time of this dictation. Findings: The ventricles, basal cisterns, and cerebral sulci are normal. There is no acute intracranial hemorrh age or evidence of acute territorial infarction. Neither mass effect, shift of the midline structures , nor abnormal extra-axial fluid collections are shown. Imaged portions of the paranasal sinuses and mastoid air cells are clear. The orbits appear normal. There are no acute fractures of the calvaria. Scalp swelling is seen in the right posterior soft tiss ues. Impression: No acute intracranial hemorrhage or skull fractures. Scalp swelling is seen in the right posterior so ft tissues. ACT 112: Negative or not required by law. Electronically signed by: Kan Douglas M.D. 08/15/2023 6:41 PM
--- NOTE | 2023-08-15 18:49 | CT Scan Report ---
CT cervical spine wo con CLINICAL HISTORY: fall TECHNIQUE: Multidetector row helical CT of the cervical spine was performed without administration of intravenous contrast. Coronal and sagittal reformations were obtained. Automated dose lowering techn iques and/or adjustment according to patient size were utilized for this exam. Comparison: Comparison is made to cervical spine radiographs 09/01/2012 FINDINGS: No acute fractures or subluxations are identified. Degenerative changes are seen in the visualized sp ine. Calcification of the transverse ligament is seen. The alignment is normal. Soft tissues are unre markable. IMPRESSION: Degenerative changes without evidence of acute bony injury. ACT 112: Negative or not required by law. Electronically signed by: Kan Douglas M.D. 08/15/2023 6:47 PM
--- NOTE | 2023-08-15 18:54 | CT Scan Report ---
CT abd pelvis IV con only CLINICAL HISTORY: fall TECHNIQUE: Helical axial images of the abdomen and pelvis were obtained and displayed. Automated dose lowering techniques and/or adjustment according to patient size were utilized for this exam. This e xam was performed with intravenous contrast. COMPARISON: Comparison is made to CT abdomen pelvis 08/14/2011 FINDINGS: Lower chest: Trace right pleural effusion. Cardiomegaly is incidentally noted. Liver: Subcentimeter hypodensities in the liver are too small to characterize. Gallbladder and biliary tree: No calcified gallstones. Normal caliber wall. No intra- or extrahepatic biliary ductal dilation. Pancreas: Unremarkable, no focal lesions. Spleen: Splenule is incidentally noted. Adrenals: Unremarkable. Kidneys and ureters: Unremarkable. Bladder: Unremarkable. Reproductive organs: Unremarkable. Bowel: Diverticulosis is seen without diverticulitis. The appendix is normal. There is a small hiatal hernia. Lymph nodes Retroperitoneal: Unremarkable. Pelvic: Unremarkable. Mesenteric: Unremarkable. Peritoneum: Normal. Vessels: Atherosclerotic calcifications are seen. Abdominal wall: Unremarkable. Bones: Right hip total arthroplasty is seen. Posterior fixation hardware spans L3-S1. HEALED fracture s are seen in the left anterior ribs. IMPRESSION: 1. No acute abnormality and in particular no evidence of acute fracture. 2. There is a trace right pleural effusion. ACT 112: Negative or not required by law. Electronically signed by: Kan Douglas M.D. 08/15/2023 6:52 PM
--- NOTE | 2023-08-15 19:27 | History & Physical Report ---
Date of Service August 15, 2023 Assessment & Plan (1) Syncope and collapse: Plan: -Admit to med/tele -Currently stable, alert/oriented, and non-toxic appearing -Presented to the ED after he experienced an episode of syncope/collapse while emptying his dehumidifier this evening -Patient has a holter monitor as he has had 2 prior episodes of exertional syncope since his hospitalization from 06/07/23-06/09/23 for Covid-19, PE, new- onset afib -The patient had a holter monitor placed on 07/22/23 at the [facility], results will be sent to the [facility] office tomorrow -At this time the patient's syncopal episode seems more consistent with an orthostatic event from changing positions and his as it does not appear that he had an acute change on the holter monitor results -Previous syncopal episodes were thought to be mainly caused by his severe and decreased respiratory reserve post COVID/pulmonary embolism -Possible new LBBB on ECG today, initial high sen trop is WNL, patient denies chest discomfort -Potassium is WNL, will obtain mag level on admission -Will Consult Cardiology and obtain TTE tomorrow -Patient will likely need to have his aortic valve replaced in the near future, Cardiology has already been in discussions with the patient regarding this -Continue to monitor on tele -Q6h Neuro checks overnight -Fall/aspiration precautions -HH/DMII diet (due to hyperglycemia due to chronic prednisone use) -AM CBC, BMP, mag, PT/INR (2) Persistent atrial fibrillation: Plan: -Since his last admission in May of this year with Covid-19 and new PE -Continue BID Metoprolol -Will hold HS dose of Eliquis tonight in case of delayed hemorrhage with recent fall -Can resume tomorrow am if stable (3) Myasthenia gravis: Plan: -Continue Prednisone (4) Hyperglycemia: Plan: -Due to chronic prednisone use -Last Hgb A1c on 01/28/23 was 5.6 -Will obtain AM Hgb A1c -Continue to monitor for now (5) Hypertension: Plan: -Stable -continue metoprolol Plan The patient was discussed with Dr. 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 The patient did hit his head and is on Eliquis. On arrival to the ED he was noted to be tachycardic with HR in the low 100's but otherwise stable. Labs including CBC, CMP, and high sen troponin were unremarkable. The patient was noted to have sustained a posterior scalp laceration. CT of the head/brain noted the posterior scalp laceration but was otherwise read as negative for acute findings. CT of the cervical spine was read as negative for acute findings. CT of the abd/pelvis w/IV noted a trace right pleural effusion but was otherwise read as negative for acute findings. And chest xray was read yet to be read prior to admission. Prior to admission the patient's head laceration was repaired. Patient was sitting in bed at the time of the exam in no acute distress with his and family friend bedside, history was obtained from all. The patient states that he went to the basement earlier this afternoon to empty out the 2 dehumidifiers. He was walking with one of the bucket when he started to develop lightheadedness and lost consciousness shortly after. Denies chest pain or SOB prior to LOC. He fell into one of their shelves causing his posterior scalp laceration. He woke shortly after and was able to get himself up off the ground, which is when he noticed his laceration. He reported the episode on the holter monitor osman and was called shortly after by Cardiology to go to the ED. He is currently without pain or complaints. He did have his am doses of eliquis and metoprolol. Denies recent fever, chills, chest pain, SOB, cough, changes in vision, hearing, taste, smell, new paresthesias, unilateral weakness, abd pain, nausea, vomiting, diarrhea, dysuria, hematuria, melena, and increased LE swelling since the fall. He confirms he is a Full code and his is his POA. Spoke with business continuity strategy director [facility] Photograph Editor, appreciate their assistance. They were contacted by the Holter Monitor Service as the patient reported a fall/syncope. He was unable to view the monitor results himself but was told by the monitoring service that the patient had been in afib during his syncopal event without acute rhythm changes. The monitoring service told the rn peritoneal dialysis Photograph Editor they attempted to call the patient but he did not answer. The business continuity strategy director Photograph Editor was able to speak with the patient who was already on his way to the ED. Please refer to Dr. Kincaid's attestation for any changes to the treatment plan Allergies Allergy/AdvReac Type Severity Reaction Status Date / Time ciprofloxacin Allergy Intermediate RASH Verified 08/15/23 19:57 Home Medications Medication Instructions Recorded Confirmed Type cyanocobalamin (vitamin B-12) 1,000 mcg PO QAM 01/10/19 08/15/23 History 1,000 mcg tablet (Vitamin B-12) folic acid 1 mg tablet 1 mg PO QAM 01/10/19 08/15/23 History prednisone 10 mg tablet 5 - 10 mg PO Q OTHER DAY 11/01/19 08/15/23 History apixaban 5 mg tablet (Eliquis) 5 mg PO BID #180 tabs 06/15/23 08/15/23 Rx metoprolol succinate 25 mg 25 mg PO BID #180 tabs 07/22/23 08/15/23 Rx tablet,extended release 24 hr mycophenolate mofetil 500 mg tablet 500 mg PO QAM 08/15/23 08/15/23 History Past Med/Surg History Problem List (Updated 08/15/23 @ 21:18 by Andre Silva MD) LBBB (left bundle branch block) (Acute) Laceration of scalp (Acute) CHI (closed head injury) (Acute) Syncope (Acute) Syncope and collapse Pleural effusion Persistent atrial fibrillation Severe aortic stenosis Syncope Shortness of breath (Acute) Pulmonary embolism, bilateral (Acute) Pulmonary embolism (2016) 2016--unknown cause;not on any blood thinners Atrial fibrillation Myofascial pain Ambulatory dysfunction Chronic steroid use Postlaminectomy syndrome of lumbosacral region Sacroiliitis Leg length discrepancy Chronic steroid use Venous insufficiency Frequent PVCs Moderate mitral regurgitation by prior echocardiogram Bradyarrhythmia Generalized osteoarthritis (Acute) Irritable bowel syndrome with diarrhea Hepatic cyst Adenomatous polyp of colon Pancreatic cyst (Acute) Osteopenia (Acute) Hyperlipidemia (Acute) Hyperglycemia (Acute) Hypertension Myasthenia gravis Medical History Atrial fibrillation with RVR Cervical radiculopathy at C5 Hammer toe 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 melanoma of left lower leg Asthma in the past; no inhalers/nebulizers/no issues Surgical History History of hammertoe correction right foot History of lumbar spinal fusion x2 History of repair of right rotator cuff x2 History of repair of left rotator cuff History of total right hip replacement History of arthroscopy of right knee History of total right knee replacement (TKR) Hx of vasectomy History of ERCP biopsy tumor of pancreas--benign History of melanoma excision x2 History of wisdom tooth extraction History of bilateral cataract extraction Family History Mother Breast cancer Father , AGE 83 CHF (congestive heart failure) Hypertension Myocardial infarction Grandmother (Maternal) , AGE 56 Stroke Brother , AGE 75 Stroke Grandfather (Maternal) Valvular heart disease Other Crohn's disease Denies family history of Colon cancer Ovarian cancer Prostate cancer Colorectal cancer Ulcerative colitis Social History Smoking Status: Former smoker packs per day: 0.75; Smoking End Date: "55 years ago"; Second Hand Exposure: No; Hx Alcohol Use: Yes Hx Substance Use: No Preferred Language: Luxembourgish Communication Ability: Effective Visual Impairment: No Limitations Hearing Ability: Use of Hearing Aid Manager Software Development Required: No Beliefs That Will Affect Care: None marital status: Current Living Situation: Spouse Current Living Situation Comment: lives with , has a caregiver that comes a few times a week current occupational status: retired current occupation: RETIRED [employer] Other Information That Helps Us Care for You: No Feels Safe at Home: Yes Safety Concerns: Feels Safe At This Time Dental Care, Regularly: Yes Physical Activity Frequency: Daily Seatbelt Use: always Assistive Devices: Glasses and Hearing Aid - Bilateral Physical Exam Physical Exam: Physical Exam: General: In no acute distress, stated age, well-nourished, non-toxic appearing HEENT: Large posterior scalp laceration is S/P repair by the ED staff and without current bleeding, no other acute trauma noted on the face or head, no scleral icterus, pupils around round, symmetrical, and reactive to light, moist mucus membranes, trachea midline, no thyromegaly Chest/Pulm: No respiratory distress, symmetrical chest expansion, clear breath sounds throughout Cardiac: irregular rate and rhythm, 4/6 systolic murmur noted Abdomen: Negative for ascites and bruising, normoactive bowel sounds, soft, non-tender to palpation throughout Musculoskeletal: Symmetrical and without signs of acute trauma, upper and l ower extremities with full ROM, no atrophy, spasticity, or flaccidity Extremities: Radial, dorsalis pedis, and posterior tibial pulses are intact and symmetrical, 1-2+ pitting edema noted in the BL LE's Skin: Posterior scalp laceration as described above Neuro: Alert and oriented to person, place, month, year, and president, no focal defects, no tremors noted Psych: No acute distress, calm and cooperative during the exam Results & Data Results & Data Vital Signs (Past 12 Hours) Vital Signs Temp Pulse Resp BP Pulse Ox O2 Del Method 08/15/23 18:33 100 H 16 147/87 H 95 Room Air 08/15/23 17:57 93 H 15 95 Room Air 08/15/23 17:44 103 H 08/15/23 17:31 36.8 C 102 H 18 147/107 H 96 Room Air Laboratory Results Abnormal lab results 08/15/23 08/15/23 Range/Units 17:44 17:46 RDW Std Deviation 49.1 H (36.4-46.3) fL Smyth # (Auto) 0.71 H (0.11-0.59) K/uL PT 12.1 H (9.0-12.0) Seconds POC Total CO2 21 L (24-31) mmol/L Glucose 120 H (70-99(Fasting)) mg/dl POC Glucose (other) 123 H (70-99) mg/dl Diagnostic Findings Abdomen/Pelvis CT 08/15/23 17:43 CT abd pelvis IV con only CLINICAL HISTORY: fall TECHNIQUE: Helical axial images of the abdomen and pelvis were obtained and displayed. Automated dose lowering techniques and/or adjustment according to patient size were utilized for this exam. This exam was performed with in travenous contrast. COMPARISON: Comparison is made to CT abdomen pelvis 08/14/2011 FINDINGS: Lower chest: Trace right pleural effusion. Cardiomegaly is incidentally noted. Liver: Subcentimeter hypodensities in the liver are too small to characterize. Gallbladder and biliary tree: No calcified gallstones. Normal caliber wall. No intra- or extrahepatic biliary ductal dilation. Pancreas: Unremarkable, no focal lesions. Spleen: Splenule is incidentally noted. Adrenals: Unremarkable. Kidneys and ureters: Unremarkable. Bladder: Unremarkable. Reproductive organs: Unremarkable. Bowel: Diverticulosis is seen without diverticulitis. The appendix is normal. There is a small hiatal hernia. Lymph nodes Retroperitoneal: Unremarkable. Pelvic: Unremarkable. Mesenteric: Unremarkable. Peritoneum: Normal. Vessels: Atherosclerotic calcifications are seen. Abdominal wall: Unremarkable. Bones: Right hip total arthroplasty is seen. Posterior fixation hardware spans L3-S1. HEALED fractures are seen in the left anterior ribs. IMPRESSION: 1. No acute abnormality and in particular no evidence of acute fracture. 2. There is a trace right pleural effusion. ACT 112: Negative or not required by law. Electronically signed by: Kan Douglas M.D. 08/15/2023 6:[address] 08/15/23 17:43 CT cervical spine wo con CLINICAL HISTORY: fall TECHNIQUE: Multidetector row helical CT of the cervical spine was performed without administration of intravenous contrast. Coronal and sagittal reformations were obtained. Automated dose lowering techniques and/or adjustment according to patient size were utilized for this exam. Comparison: Comparison is made to cervical spine radiographs 09/01/2012 FINDINGS: No acute fractures or subluxations are identified. Degenerative changes are seen in the visualized spine. Calcification of the transverse ligament is seen. The alignment is normal. Soft tissues are unremarkable. IMPRESSION: Degenerative changes without evidence of acute bony injury. ACT 112: Negative or not required by law. Electronically signed by: Kan Douglas M.D. 08/15/2023 6:[address] 08/15/23 17:43 CT head/brain wo con CLINICAL HISTORY: fall Technique: Contiguous axial CT images of the head were acquired from the base of the skull to the vertex without intravenous contrast administration. Images were viewed in brain, subdural and bone windows. Automated dose lowering techniques and/or adjustment according to patient size were utilized for this exam. Comparison: None available at the time of this dictation. Findings: The ventricles, basal cisterns, and cerebral sulci are normal. There is no acute intracranial hemorrhage or evidence of acute territorial infarction. Neither mass effect, shift of the midline structures, nor abnormal extra-axial fluid collections are shown. Imaged portions of the paranasal sinuses and mastoid air cells are clear. The orbits appear normal. There are no acute fractures of the calvaria. Scalp swelling is seen in the right posterior soft tissues. Impression: No acute intracranial hemorrhage or skull fractures. Scalp swelling is seen in the right posterior soft tissues. ACT 112: Negative or not required by law. Electronically signed by: Kan Douglas M.D. 08/15/2023 6:41 PM ECG Additional Comments: Atrial fibrillation Left axis deviation Left bundle branch block Abnormal ECG When compared with ECG of 15-AUG-2023 17:39, (unconfirmed) No significant change was found Code Status & VTE Plan Code Status Full code VTE Prophylaxis Plan VTE Prophylaxis will be ordered: Yes Supervising Physician Co-Signing Physician Notes Attending addendum: I have physically seen this patient, have supervised the OSMAN's activities, and agree with the H&P unless as otherwise noted. Assessment and Plan: Syncope and collapse- The patient will be admitted to telemetry for serial cardiac enzymes, serial EKG's, cardiac rhythm monitoring and a 2-D echocardiogram with Dopplers. The patient had been emptying his dehumidifier at home, and had a syncopal episode, which prompted his visit to the emergency department. Patient has Holter monitor for by cardiology placed on 07/22/2023 due to 2 previous episodes of exertional syncope from 06/06-06/09/2023, when he had COVID- 19 infection and when he had new onset atrial fibrillation Symptomatology this time is more suggestive of orthostasis associated with severe aortic stenosis. EKG in ED this evening suggestive of new left bundle branch block, with troponin normal at 10.5 CT scan of head shows right posterior scalp swelling CT scan cervical spine shows degenerative disc disease CT scan abdomen pelvis is negative Neurochecks as noted Consult to cardiology Atrial fibrillation- Continue metoprolol succinate 25 mg p.o. twice daily, apixaban 5 mg p.o. twice daily Cardiology to assess as noted Remaining orders and notations as noted PG Care Time/CCT Total # of Minutes Spent Total Time Spent with Patient: Total time spent is greater than 50% in coordination of care (as documented) at patient's floor/unit and/or counseling patient: Coding [place] [address] INT INP/OBS CARE MIN Patient Type Established Medical Decision Making High Complexity Diagnoses Syncope and collapse R55 Persistent atrial fibrillation I48.19 Myasthenia gravis G70.00 Hyperglycemia R73.9 Hypertension I10
--- NOTE | 2023-08-15 19:41 | XRay Report ---
XR chest 1V portable CLINICAL HISTORY: Chest pain, nonspecific TECHNIQUE: Single frontal radiograph of the chest was obtained. Comparison: Comparison is made to chest radiograph 08/12/2023 FINDINGS: No lines and tubes are seen. Cardiomegaly is noted. The lungs are clear. Blunting of the right costop hrenic angle is seen compatible with scarring seen on prior exam. IMPRESSION: No acute chest disease. Cardiomegaly is noted. ACT 112: Negative or not required by law. Electronically signed by: Kan Douglas M.D. 08/15/2023 7:40 PM
[2023-08-15 19:57] LABS: Magnesium 1.9 mg/dl (1.7-2.4)
[2023-08-15] MEDS: MAGNESIUM SULFATE / D5W 1 GM/100 ML BAG IV ONE (20:51)
[2023-08-15] MEDS: METOPROLOL SUCC 25MG EXT REL TAB PO SCH (23:03)
[2023-08-15] MEDS: ACETAMINOPHEN 325 MG TAB PO PRN (23:08)
--- NOTE | 2023-08-16 05:49 | Billing Data ---
Date of Service August 16, 2023 Coding Level of Care Code 35828 INT INP/OBS CARE
[2023-08-16 06:32] LABS: Basophils # (auto) 0.04 K/uL (0.00-0.20); Basophils % (auto) 0.4 %; Hematocrit (blood only) 39.7 % (42.0-52.0); Hemoglobin 13.5 g/dl (14.0-18.0); Immature Granulocytes # (auto) 0.04 K/uL (0.01-0.20); Immature Granulocytes % (auto) 0.4 %; Lymphocytes # (auto) 2.51 K/uL (1.20-3.40); Lymphocytes % (auto) 25.4 %; Mean Corpuscular Volume 91.3 fL (80.0-100.0); Mean Platelet Volume 11.5 fL (9.4-12.4); Monocytes # (auto) 0.82 K/uL (0.11-0.59); Monocytes % (auto) 8.3 %; Neutrophils # (auto) 6.26 K/uL (1.40-6.50); Neutrophils % (auto) 63.5 %; Platelet Count 129 K/uL (130-400); RDW Coefficient of Variation 14.1 % (11.5-14.5); RDW Standard Deviation 47.4 fL (36.4-46.3); Red Blood Count 4.35 M/uL (4.70-6.10); White Blood Count 9.87 K/ul (4.8-10.8)
[2023-08-16 06:41] LABS: BUN Creatinine Ratio 16.9 (10-20); Calcium 8.5 mg/dl (8.6-10.3); Creatinine Clr Calc Pharmacy 77.1 ml/min; Est GFR (African American) 98.5 ml/min; Potassium 3.6 mmol/L (3.5-5.1)
[2023-08-16 06:59] LABS: INR 1.2 (0.9-1.1); Prothrombin Time 12.5 Seconds (9.0-12.0)
[2023-08-16] MEDS: predniSONE 5 MG TAB PO SCH (07:32)
[2023-08-16 08:13] LABS: Estimated Average Glucose 108 mg/dl; Hemoglobin A1C 5.4 % (4.5-5.6)
--- NOTE | 2023-08-16 10:26 | Hospitalist Progress Note ---
Date of Service August 16, 2023 Assessment & Plan (1) Syncope and collapse: Plan: -Presented to the ED after he experienced an episode of syncope/collapse while emptying his dehumidifier this evening - had a few seconds on prodromal symptoms - Currently has holter monitor (placed 07/22/23), after two episodes of syncope- thought to be related to and decreased respiratory reserve after recent COVID and PE (05/2023). Referred to [facility] for TAVR last month, but no appointment yet - Possible new LBBB on admission ECG, trop neg x2, patient denies chest discomfort -Consult Cardiology - plan for heart Cath today - Echo pending -Patient will likely need to have his aortic valve replaced in the near future, Cardiology has already been in discussions with the patient regarding this -Q6h Neuro checks overnight -Fall/aspiration precautions (2) Persistent atrial fibrillation: Plan: -Since his last admission in May of this year with Covid-19 and new PE -Continue BID Metoprolol -Resumed Eliquis AM 08/15 (3) Myasthenia gravis: Plan: -Continue Prednisone and mycophenolate (4) Hyperglycemia: Plan: -Last Hgb A1c on 01/28/23 was 5.6, repeat 5.4 - Diet controlled outpatient (5) Hypertension: Plan: -Stable -continue metoprolol Plan Dispo: continued inpatient stay, transfer to PCU for heart cath DVT proh: Eliquis Admission and Anticipated Discharge Date Admission Date: August 15, 2023 Supervising Physician Co-Signing Physician Notes PA Supervision Note: I did not personally see or examine the patient today, but I verified all jaramillo points of HASMUKH Olivares's assessment and plan with the following exceptions/additions: Cardiology recommended adding statin-added atorvastatin 40mg daily for mild-mod nonobstructive CAD and severe Subjective Harman was seen resting in bed in room 259. He reports feeling well overall, brief prodromal symptoms prior to passing out, but reports normal state of health. has not had appointment yet with [facility] cardiology to discuss TAVR. Does report headache near incision site and difficulty getting comfortable to sleep No vision changes, blurry vision. Is alert and oriented. Tele - afib 80s Review of Systems Review of Systems: All systems reviewed & are unremarkable except as noted in Subjective Physical Exam Physical Exam: General: NAD, VS as above HEENT: no focal neuro deficets, EOMI, sclap laceration visualized - nestor intact. Does have abrasion just inferior to large incisons Resp: normal respiratory effort, lungs clear to auscultation CV: RRR, no murmur, Abd: normal bowel sounds, soft non tender, no hepatosplenomegaly Extremities: Moves all extremities, no edema Neuro: A&O x3, Skin: intact, no lesions noted Results & Data Results & Data Vital Signs (Past 12 Hours) Vital Signs Temp Pulse Pulse Resp BP Pulse Ox O2 Del Method 08/16/23 08:26 102 H 08/16/23 07:38 36.6 C 83 20 157/96 H 95 Room Air 08/16/23 04:34 36.4 C L 82 20 154/93 H 93 Room Air 08/15/23 23:00 36.3 C L 101 H 18 164/95 H 96 Room Air Laboratory Results CBC, chemistry and INR reviewed PG Care Time/CCT Total # of Minutes Spent Total Time Spent with Patient: Total time spent is greater than 50% in coordination of care (as documented) at patient's floor/unit and/or counseling patient: Coding Level of Care Code 84542 SUB INP/OBS CARE 3/50MIN Diagnoses Syncope and collapse R55 Persistent atrial fibrillation I48.19 Myasthenia gravis G70.00 Hyperglycemia R73.9 Hypertension I10
[2023-08-16] MEDS: MYCOPHENOLATE MOFETIL 250 MG CAP PO SCH (10:34)
[2023-08-16] MEDS: APIXABAN 5 MG TABLET PO SCH (11:34)
--- NOTE | 2023-08-16 16:00 | Pre Anesthesia Assessment ---
Date of Service August 16, 2023 Pre Sedation Assessment Vital Signs Temp Pulse Pulse Resp BP BP Pulse Ox 08/16/23 14:41 98.2 F 115 H 14 155/113 H 96 08/16/23 11:39 98.1 F 88 20 151/83 H 94 08/16/23 08:26 102 H 08/16/23 07:38 97.9 F 83 20 157/96 H 95 08/16/23 04:34 97.5 F L 82 20 154/93 H 93 08/15/23 23:00 97.3 F L 101 H 18 164/95 H 96 08/15/23 20:33 94 H 11 L 155/102 H 97 08/15/23 20:15 87 93 08/15/23 20:12 91 H 96 08/15/23 20:00 95 H 143/104 H 96 08/15/23 19:54 85 14 93 08/15/23 19:30 169/118 H 08/15/23 19:21 107 H 23 90 08/15/23 19:18 92 H 17 96 08/15/23 19:00 96 H 17 147/99 H 95 08/15/23 18:51 99 H 16 96 08/15/23 18:45 96 H 18 94 08/15/23 18:33 100 H 16 147/87 H 95 08/15/23 17:57 93 H 15 95 08/15/23 17:44 103 H 08/15/23 17:31 98.2 F 102 H 18 147/107 H 96 O2 Del Method 08/16/23 14:41 Room Air 08/16/23 11:39 Room Air 08/16/23 08:26 08/16/23 07:38 Room Air 08/16/23 04:34 Room Air 08/15/23 23:00 Room Air 08/15/23 20:33 Room Air 08/15/23 20:15 08/15/23 20:12 08/15/23 20:00 Room Air 08/15/23 19:54 08/15/23 19:30 08/15/23 19:21 08/15/23 19:18 08/15/23 19:00 Room Air 08/15/23 18:51 08/15/23 18:45 08/15/23 18:33 Room Air 08/15/23 17:57 Room Air 08/15/23 17:44 08/15/23 17:31 Room Air Cardiovascular + regular rate Respiratory + respiratory effort normal Pre-Sedation Airway Assessment Smoking Status: Former smoker Hx Sleep Apnea: No Hx Difficult Intubation: No Short, Thick Neck: No Thyromental Distance: > or= 3.5 Finger Breadths Oral Cavity: + WNL Mallampati Class: II ASA: ASA2 NPO Status Date of Last Intake of Fluids: 08/16/23 Time of Last Intake of Fluids: 08:00 Date of Last Intake of Solid Food: 08/16/23 Time of Last Intake of Solid Foods: 08:00 Procedure Planning Contraindications for Sedation: none Current Medications Reviewed: Yes Notes The planned sedation has been discussed with the patient. Informed Consent was obtained. I have identified the patient, determined the appropriateness of sedation and have assessed the patient immediately prior to the procedure. All medicine(s) and interventions are by my order.
[2023-08-16] MEDS: NITROGLYCERIN/D5W 100MCG/ML 20ML SYR ONE (16:28)
[2023-08-16] MEDS: niCARdipine HCL INJ 2.5 MG/ML 10 ML AMP ONE (16:28)
[2023-08-16] MEDS: fentaNYL citrate PF 100 MCG/2 ML VIAL ONE (16:43)
[2023-08-16] MEDS: MIDAZOLAM HCL 1 MG/ML 2ML VIAL ONE (16:43)
[2023-08-16] MEDS: HEPARIN (PORCINE) 1000 UNIT/ML 10 ML (CATH LAB USE ONLY) ONE (16:43)
[2023-08-16] MEDS: OPTIRAY 350 ONE (16:44)
--- NOTE | 2023-08-16 17:06 | Post Anesthesia Assessment ---
Date of Service August 16, 2023 Post Sedation Assessment Vital Signs Temp Pulse Pulse Resp BP BP Pulse Ox 08/16/23 14:41 98.2 F 115 H 14 155/113 H 96 08/16/23 11:39 98.1 F 88 20 151/83 H 94 08/16/23 08:26 102 H 08/16/23 07:38 97.9 F 83 20 157/96 H 95 08/16/23 04:34 97.5 F L 82 20 154/93 H 93 08/15/23 23:00 97.3 F L 101 H 18 164/95 H 96 08/15/23 20:33 94 H 11 L 155/102 H 97 08/15/23 20:15 87 93 08/15/23 20:12 91 H 96 08/15/23 20:00 95 H 143/104 H 96 08/15/23 19:54 85 14 93 08/15/23 19:30 169/118 H 08/15/23 19:21 107 H 23 90 08/15/23 19:18 92 H 17 96 08/15/23 19:00 96 H 17 147/99 H 95 08/15/23 18:51 99 H 16 96 08/15/23 18:45 96 H 18 94 08/15/23 18:33 100 H 16 147/87 H 95 08/15/23 17:57 93 H 15 95 08/15/23 17:44 103 H 08/15/23 17:31 98.2 F 102 H 18 147/107 H 96 O2 Del Method 08/16/23 14:41 Room Air 08/16/23 11:39 Room Air 08/16/23 08:26 08/16/23 07:38 Room Air 08/16/23 04:34 Room Air 08/15/23 23:00 Room Air 08/15/23 20:33 Room Air 08/15/23 20:15 08/15/23 20:12 08/15/23 20:00 Room Air 08/15/23 19:54 08/15/23 19:30 08/15/23 19:21 08/15/23 19:18 08/15/23 19:00 Room Air 08/15/23 18:51 08/15/23 18:45 08/15/23 18:33 Room Air 08/15/23 17:57 Room Air 08/15/23 17:44 08/15/23 17:31 Room Air Recovery Score Activity: Moves 4 extremities Respiration: Deep Breath/Cough Circulation: +/-20% PreAnes Value Consciousness: Fully Awake Oxygen Saturation: O2 needed for >90% Discharge Sedation Level of Care: Fast Track Phase II Post Sedation Plan On clinical assessment, the patient appears to have tolerated the sedation wit hout complications. Patient is recovering as anticipated. Patient will continue to be monitored by nursing and may be discharged when sedation discharge criteria are met per below protocol. Upon Completions of procedure up to 15 minutes continue every 5 minute vital signs and the P.A.R. score; then discharge to a Phase I or Fast Track to Phase II per the following guidelines: * Discharge Patient to appropriate Phase II area if PAR is 8 or greater or return to pre- procedure baseline. The post - procedure orders will be as directed. * If PAR score is less than 8 or not return to pre-procedure baseline then patient will follow Phase I monitoring till PAR is reached for Phase II. The Phase I may be done in procedure room or may call to secure a Phase I area. * If naloxone or flumazenil are used for reversal, hold in Phase I for continued monitoring from when last reversal dose was given for a minimum of 60 minutes or longer pending the nurse and/or physician discretion of patient condition before discharge to Phase II. Please call the Sedation Physician to re-evaluate and complete post-note for discharge to Phase II area. Do NOT discharge from procedure sedation or Phase 1 until post- sedation evaluation note is complete by procedure /sedation MD Sedation Discharge Instructions to be given to the patient at discharge to home.
[2023-08-16] MEDS: IODIXANOL (VISIPAQUE) 320 MG/ML 100ML IV ONE (17:11)
--- NOTE | 2023-08-16 17:26 | Cardiac Catheterization ---
[facility] Data: [facility] Cardiac Status Clinical evaluation leading to the procedure CAD Presenation: Sx unlikely to be ischemic Diagnostic Physicians Name: Khris Marroquin MD Closure Device Recommendations: Medical Therapy and/or Counseling Cardiac Cath Procedure Full Procedure Date August 16, 2023 Pre-Procedure Diagnosis Pre-Procedure Diagnosis: Valvular Disease AUC Score AUC Score: 7 Post-Procedure Diagnosis Post-Procedure Diagnosis: Moderate CAD Procedure(s) Performed Procedure(s) Performed: Coronary Angiography and Left Heart Cath Turn Down Attendant Khris Marroquin MD Payment Analyst(s) De[place]ler Estimated Blood Loss Estimated Blood Loss: 10 Medication(s) Medication(s): Fentanyl, Heparin, Lidocaine 1%, Nicardipine, Nitroglycerin and Versed Summary of Findings Indication: Syncope, severe Access: 6 Fr right radial artery Catheters: [place], diagnostic JL 3.5 Findings: LM -normal caliber, calcified, no significant disease LAD -medium caliber vessel, calcified 40% ostial stenosis remainder of vessel without significant disease and wraps around apex. High D1 medium caliber without significant disease. Circumflex -medium caliber, 20% mid segment disease. Medium OM 3 with 50-60% focal proximal stenosis RCA -dominant, calcified, medium caliber, earlymid segment luminal irregularities, 30% stenosis in posterior AV branch after PDA. LVEDP -6 Aortic valve the peak pullback gradient 25 to 30 mmHg Arterial Closure: TR band Summary: 1. Mild to moderate nonobstructive coronary artery disease -40% ostial LAD 50-60% proximal OM3 2. Normal intracardiac filling pressure 3. Aortic stenosis Recommendations: Proceed with TAVR evaluation for aortic stenosis Continued ASCVD risk factor modification Hemodynamics Rest Ao:: 140/86/109 Final Ao: 169/6 LV: 130/76/99 Recommendations Recommendations: Medical Therapy and/or Counseling Radiation Exposure (mGy) 1027 Contrast (mls) 40 Anesthesia Moderate 5814-5720 Procedural Complication(s) None Disposition [facility] Holding/Recovery I attest to the content of the Intraoperative Record and any orders documented therein. Any exceptions are noted below. [facility] Card Cath Procedure Codes Cardiac Catheterization Procedure 1: Cardiovascular Cath Procedures: 50735 Coronaries and LHC (+/-LV) Moderate Sedation Procedure 1: Sedation/Anesthesia: 21775 Mod Sedation by the same physician;Init15 Min Child Age 5 & Up PG Care Time/CCT Total # of Minutes Spent Total Time Spent with Patient: Total time spent is greater than 50% in coordination of care (as documented) at patient's floor/unit and/or counseling patient:
--- NOTE | 2023-08-16 17:50 | XCELERA ---
[id number]
--- NOTE | 2023-08-16 22:20 | Cardiology Consultation ---
Date of Consultation August 16, 2023 Assessment & Plan (1) Syncope: Plan 2. Low-flow, low gradient severe aortic stenosis 3. Persistent atrial fibrillationrelatively rate controlled on increased Toprol 25 mg BID 4. Prior VTEin setting of COVID 5. Mild to moderate nonobstructive CAD40% ostial LAD, 50% OM3 6. Mild to moderate MR 7. Myastheniachronic steroids Patient here with recurrent episode of exertional syncope. Persistnet AF but no other arrhythmia per [facility]OT. No obstructive CAD on cath today. On echo LV function unchanged but appears to have progressed, now consistent with severe low-flow, low gradient. Suspect syncope primarily related to with LVH and exacerbated by exertional stress, persistent AF and relative dehydration (low LVEDP on cath). Recommendations: --Will arrange expedited TAVR evaluation as an outpatient with [facility]. --Continue current rate control with Toprol-XL 25 BID. --Avoid dehydration, strenuos exercise while awaiting AVR --Resume Eliquis tomorrow --Start statin --Consider attempt at rhythm control if recurrent symptoms --Follow-up [facility] with Dr. Hansen History of Present Illness Attending Physician: Jessy Bedolla MD History of Present Illness Mr. Doe is a very pleasant 87 year-old man seen for recurrent syncopal episodes. Dr. Hansen is his primary edge dyer. Past cardiac history remarkable for frequent PVCs, aortic stenosis approaching severe awaiting TAVR evaluation. Persistent atrial fibrillation initially diagnosed in the setting of COVID, multiple PE 05/2023. Has chronic LBBB, hypertension. 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 Yesterday patient had gone into his basement to empty dehumidifier when acutely became lightheaded prior to loss of consciousness and fall resulting in cut on his head. No preceding chest pain, palpitations, shortness of breath, nausea, diaphoresis. Quickly returned to baseline. Patient has had 2 prior exertional syncopal episodes that were similar to recent event. [facility]OT in place. Per communication with monitoring company remained in AF during event. Since admission has remained in AF with heart rates primarily in the 80s to 100s. Brief spikes as high as 140s. ECG again showed chronic left bundle branch block. HS TropI negative. Allergies Allergy/AdvReac Type Severity Reaction Status Date / Time ciprofloxacin Allergy Intermediate RASH Verified 08/15/23 19:57 Home Medications Medication Instructions Recorded Confirmed Type cyanocobalamin (vitamin B-12) 1,000 mcg PO QAM 01/10/19 08/15/23 History 1,000 mcg tablet (Vitamin B-12) folic acid 1 mg tablet 1 mg PO QAM 01/10/19 08/15/23 History prednisone 10 mg tablet 5 - 10 mg PO Q OTHER DAY 11/01/19 08/15/23 History apixaban 5 mg tablet (Eliquis) 5 mg PO BID #180 tabs 06/15/23 08/15/23 Rx metoprolol succinate 25 mg 25 mg PO BID #180 tabs 07/22/23 08/15/23 Rx tablet,extended release 24 hr mycophenolate mofetil 500 mg tablet 500 mg PO QAM 08/15/23 08/15/23 History Patient History Medical History Atrial fibrillation with RVR Cervical radiculopathy at C5 Hammer toe 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 melanoma of left lower leg Asthma in the past; no inhalers/nebulizers/no issues Surgical History History of hammertoe correction right foot History of lumbar spinal fusion x2 History of repair of right rotator cuff x2 History of repair of left rotator cuff History of total right hip replacement History of arthroscopy of right knee History of total right knee replacement (TKR) Hx of vasectomy History of ERCP biopsy tumor of pancreas--benign History of melanoma excision x2 History of wisdom tooth extraction History of bilateral cataract extraction Family History Mother Breast cancer Father , AGE 83 CHF (congestive heart failure) Hypertension Myocardial infarction Grandmother (Maternal) , AGE 56 Stroke Brother , AGE 75 Stroke Grandfather (Maternal) Valvular heart disease Other Crohn's disease Denies family history of Colon cancer Ovarian cancer Prostate cancer Colorectal cancer Ulcerative colitis Social History Smoking Status: Former smoker packs per day: 0.75; Smoking End Date: "55 years ago"; Second Hand Exposure: No; Hx Alcohol Use: Yes Hx Substance Use: No Preferred Language: Brazilian Communication Ability: Effective Visual Impairment: No Limitations Hearing Ability: Use of Hearing Aid Sessions Clerk Required: No Beliefs That Will Affect Care: None marital status: Current Living Situation: Spouse Current Living Situation Comment: lives with , has a caregiver that comes a few times a week current occupational status: retired current occupation: RETIRED FOR[employer]ER Other Information That Helps Us Care for You: No Feels Safe at Home: Yes Safety Concerns: Feels Safe At This Time Dental Care, Regularly: Yes Physical Activity Frequency: Daily Seatbelt Use: always Assistive Devices: None Review of Systems Review of Systems: All systems reviewed & are unremarkable except as noted in HPI & below Physical Exam Physical Exam: General: Comfortable HEENT: Sclerae anicteric Lungs: Clear to auscultation bilaterally, no crackles or wheezes Cardiac: Irregular irregular, 3-6 systolic ejection murmur Vascular: 2+ radial Abdomen: Soft, nontender Extremities: Well perfused, trace edema neuro: Nonfocal Psych: Alert orient x3, normal affect and mood Results & Data Vital Signs (Past 12 Hours) Vital Signs Temp Pulse Resp BP Pulse Ox O2 Del Method 08/16/23 18:15 105 H 18 161/93 H 90 Room Air 08/16/23 18:00 102 H 18 163/101 H 96 Room Air 08/16/23 17:45 91 H 18 165/91 H 95 Room Air 08/16/23 17:30 87 20 147/99 H 96 Room Air 08/16/23 17:14 98.1 F 85 18 165/90 H 95 Room Air 08/16/23 14:41 98.2 F 115 H 14 155/113 H 96 Room Air 08/16/23 11:39 98.1 F 88 20 151/83 H 94 Room Air PG Care Time/CCT Total # of Minutes Spent Total Time Spent with Patient: Total time spent is greater than 50% in coordination of care (as documented) at patient's floor/unit and/or counseling patient: Coding Level of Care Code 23200 INT INP/OBS CARE 3/75MIN Diagnoses Syncope R55
[2023-08-17 07:46] LABS: Basophils # (auto) 0.05 K/uL (0.00-0.20); Basophils % (auto) 0.5 %; Hematocrit (blood only) 44.9 % (42.0-52.0); Immature Granulocytes # (auto) 0.03 K/uL (0.01-0.20); Immature Granulocytes % (auto) 0.3 %; Lymphocytes # (auto) 1.82 K/uL (1.20-3.40); Lymphocytes % (auto) 18.3 %; Mean Corpuscular Hemoglobin 31.1 pg (25.0-34.0); Mean Corpuscular Hgb Conc 33.4 g/dL (32.0-36.0); Mean Platelet Volume 11.9 fL (9.4-12.4); Monocytes # (auto) 0.96 K/uL (0.11-0.59); Monocytes % (auto) 9.7 %; Neutrophils # (auto) 6.86 K/uL (1.40-6.50); Neutrophils % (auto) 69.2 %; Platelet Count 137 K/uL (130-400); RDW Coefficient of Variation 14.2 % (11.5-14.5); RDW Standard Deviation 48.7 fL (36.4-46.3); Red Blood Count 4.83 M/uL (4.70-6.10); White Blood Count 9.92 K/ul (4.8-10.8)
[2023-08-17 08:06] LABS: BUN Creatinine Ratio 16.3 (10-20); Calcium 8.7 mg/dl (8.6-10.3); Creatinine Clr Calc Pharmacy 63.7 ml/min; Est GFR (Non-African American) 78.5 ml/min
[2023-08-17] MEDS: ATORVASTATIN 40 MG TAB PO SCH (08:57)
[2023-08-17] MEDS: predniSONE 10 MG TABLET PO SCH (08:57)
--- NOTE | 2023-08-17 13:12 | Discharge Summary ---
Discharge Summary Date of Service August 17, 2023 Principal Dx & Hospital Course #1 = Principal Diagnosis (1) Syncope and collapse: -Presented to the ED after he experienced an episode of syncope/collapse while emptying his dehumidifier this evening - had a few seconds on prodromal symptoms - Currently has holter monitor (placed 07/22/23), after two episodes of syncope- thought to be related to and decreased respiratory reserve after recent COVID and PE (05/2023). Referred to [facility] for TAVR last month, but no appointment yet - Possible new LBBB on admission ECG, trop neg x2, patient denies chest discomfort -Consult Cardiology -Left heart cath with mild to moderate nonobstructive CAD - started on atorvastatin but no need for aspirin as he is on Eliquis - now severe, will expedite process for TAVR. Good hydration and avoiding strenuous activity in the mean time - Echo: severe , EF 55-60% (2) Persistent atrial fibrillation: -Since his last admission in May of this year with Covid-19 and new PE -Continue BID Metoprolol -Resumed Eliquis AM 08/16 (3) Myasthenia gravis: -Continue Prednisone and mycophenolate (4) Hyperglycemia: -Last Hgb A1c on 01/28/23 was 5.6, repeat 5.4 - Diet controlled outpatient, no indication for medication at this time (5) Hypertension: -Stable -continue metoprolol Plan Dispo: discharged home today with and son. Discussed activity limitations family updated at bedside Notes For Next Care Provider admitted with episode of syncope while changing the dehumidifierthought to be related to his aortic stenosis and dehydration. Repeat echo showed severe a ortic stenosis. 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 The patient did hit his head and is on Eliquis. On arrival to the ED he was noted to be tachycardic with HR in the low 100's but otherwise stable. Labs including CBC, CMP, and high sen troponin were unremarkable. The patient was noted to have sustained a posterior scalp laceration. CT of the head/brain noted the posterior scalp laceration but was otherwise read as negative for acute findings. CT of the cervical spine was read as negative for acute findings. CT of the abd/pelvis w/IV noted a trace right pleural effusion but was otherwise read as negative for acute findings. And chest xray was read yet to be read prior to admission. Prior to admission the patient's head laceration was repaired. Patient was sitting in bed at the time of the exam in no acute distress with his and family friend bedside, history was obtained from all. The patient states that he went to the basement earlier this afternoon to empty out the 2 dehumidifiers. He was walking with one of the bucket when he started to develop lightheadedness and lost consciousness shortly after. Denies chest pain or SOB prior to LOC. He fell into one of their shelves causing his posterior scalp laceration. He woke shortly after and was able to get himself up off the ground, which is when he noticed his laceration. He reported the episode on the holter monitor osman and was called shortly after by Cardiology to go to the ED. He is currently without pain or complaints. He did have his am doses of eliquis and metoprolol. Denies recent fever, chills, chest pain, SOB, cough, changes in vision, hearing, taste, smell, new paresthesias, unilateral weakness, abd pain, nausea, vomiting, diarrhea, dysuria, hematuria, melena, and increased LE swelling since the fall. He confirms he is a Full code and his is his POA. Spoke with receptionist secretary [facility] Curriculum And Assessment Director, appreciate their assistance. They were contacted by the Holter Monitor Service as the patient reported a fall/syncope. He was unable to view the monitor results himself but was told by the monitoring service that the patient had been in afib during his syncopal event without acute rhythm changes. The monitoring service told the guest relations executive Curriculum And Assessment Director they attempted to call the patient but he did not answer. The receptionist secretary Curriculum And Assessment Director was able to speak with the patient who was already on his way to the ED. Please refer to Dr. Kincaid's attestation for any changes to the treatment plan Discharge Exam General: NAD, VS as above HEENT: no focal neuro deficets, scalp laceration visualized - nestor intact. Does have abrasion just inferior to large incisions Resp: normal respiratory effort, lungs clear to auscultation CV: afib, + murmur Extremities: Moves all extremities, no edema. Radial cath site without bleeding Neuro: A&O x3, Updated Medication List Medication Instructions Recorded Confirmed Type cyanocobalamin (vitamin B-12) 1,000 mcg PO QAM 01/10/19 08/15/23 History 1,000 mcg tablet (Vitamin B-12) folic acid 1 mg tablet 1 mg PO QAM 01/10/19 08/15/23 History prednisone 10 mg tablet 5 - 10 mg PO Q OTHER DAY 11/01/19 08/15/23 History apixaban 5 mg tablet (Eliquis) 5 mg PO BID #180 tabs 06/15/23 08/15/23 Rx metoprolol succinate 25 mg 25 mg PO BID #180 tabs 07/22/23 08/15/23 Rx tablet,extended release 24 hr mycophenolate mofetil 500 mg tablet 500 mg PO QAM 08/15/23 08/15/23 History atorvastatin 40 mg tablet 40 mg PO QAM #30 tabs 08/17/23 Rx Hospital Stay Data Consultations 08/15/23 19:12 ED Decision to Admit Stat 08/15/23 19:39 Consult Cardiology Routine Procedures Performed Operation Date: 08/16/23 15:00 Actual Procedures s Cineradiography w/Routine Exam - Khris Marroquin MD p Cath, Left with Cors and Vent - Khris Marroquin MD Diagnostic Imagining Performed Chest X-Ray 08/15/23 17:42 XR chest 1V portable CLINICAL HISTORY: Chest pain, nonspecific TECHNIQUE: Single frontal radiograph of the chest was obtained. Comparison: Comparison is made to chest radiograph 08/12/2023 FINDINGS: No lines and tubes are seen. Cardiomegaly is noted. The lungs are clear. Blunting of the right costophrenic angle is seen compatible with scarring seen on prior exam. IMPRESSION: No acute chest disease. Cardiomegaly is noted. ACT 112: Negative or not required by law. Electronically signed by: Kan Douglas M.D. 08/15/2023 7:40 PM Abdomen/Pelvis CT 08/15/23 17:43 CT abd pelvis IV con only CLINICAL HISTORY: fall TECHNIQUE: Helical axial images of the abdomen and pelvis were obtained and displayed. Automated dose lowering techniques and/or adjustment according to patient size were utilized for this exam. This exam was performed with intravenous contrast. COMPARISON: Comparison is made to CT abdomen pelvis 08/14/2011 FINDINGS: Lower chest: Trace right pleural effusion. Cardiomegaly is incidentally noted. Liver: Subcentimeter hypodensities in the liver are too small to characterize. Gallbladder and biliary tree: No calcified gallstones. Normal caliber wall. No intra- or extrahepatic biliary ductal dilation. Pancreas: Unremarkable, no focal lesions. Spleen: Splenule is incidentally noted. Adrenals: Unremarkable. Kidneys and ureters: Unremarkable. Bladder: Unremarkable. Reproductive organs: Unremarkable. Bowel: Diverticulosis is seen without diverticulitis. The appendix is normal. There is a small hiatal hernia. Lymph nodes Retroperitoneal: Unremarkable. Pelvic: Unremarkable. Mesenteric: Unremarkable. Peritoneum: Normal. Vessels: Atherosclerotic calcifications are seen. Abdominal wall: Unremarkable. Bones: Right hip total arthroplasty is seen. Posterior fixation hardware spans L3-S1. HEALED fractures are seen in the left anterior ribs. IMPRESSION: 1. No acute abnormality and in particular no evidence of acute fracture. 2. There is a trace right pleural effusion. ACT 112: Negative or not required by law. Electronically signed by: Kan Douglas M.D. 08/15/2023 6:[address] 08/15/23 17:43 CT cervical spine wo con CLINICAL HISTORY: fall TECHNIQUE: Multidetector row helical CT of the cervical spine was performed without administration of intravenous contrast. Coronal and sagittal reformations were obtained. Automated dose lowering techniques and/or adjustment according to patient size were utilized for this exam. Comparison: Comparison is made to cervical spine radiographs 09/01/2012 FINDINGS: No acute fractures or subluxations are identified. Degenerative changes are seen in the visualized spine. Calcification of the transverse ligament is seen. The alignment is normal. Soft tissues are unremarkable. IMPRESSION: Degenerative changes without evidence of acute bony injury. ACT 112: Negative or not required by law. Electronically signed by: Kan Douglas M.D. 08/15/2023 6:[address] 08/15/23 17:43 CT head/brain wo con CLINICAL HISTORY: fall Technique: Contiguous axial CT images of the head were acquired from the base of the skull to the vertex without intravenous contrast administration. Images were viewed in brain, subdural and bone windows. Automated dose lowering techniques and/or adjustment according to patient size were utilized for this exam. Comparison: None available at the time of this dictation. Findings: The ventricles, basal cisterns, and cerebral sulci are normal. There is no acute intracranial hemorrhage or evidence of acute territorial infarction. Neither mass effect, shift of the midline structures, nor abnormal extra-axial fluid c ollections are shown. Imaged portions of the paranasal sinuses and mastoid air cells are clear. The orbits appear normal. There are no acute fractures of the calvaria. Scalp swelling is seen in the right posterior soft tissues. Impression: No acute intracranial hemorrhage or skull fractures. Scalp swelling is seen in the right posterior soft tissues. ACT 112: Negative or not required by law. Electronically signed by: Kna Douglas M.D. 08/15/2023 6:41 PM Pending Results Patient Have Any Pending Studies at Discharge: No Discharge Instructions Given to Patient (Per Discharging Provider) Mr. Doe, Philip were hospitalized after an episode of syncope at home. This was thought to be from your aortic stenosis, that has unfortunately worsened and from being dehydrated. You had extensive workup during her hospital stay that did not show any other causes. You also underwent heart catheterization that showed mild to moderate coronary artery disease. For the coronary artery disease, you have been started on a cholesterol medicine, atorvastatin. you will take this once a day. An echocardiogram revealed that your aortic stenosis has worsened - and the ribbon sweatband operator is working to expedite the process for you to get a valve replacement at [facility]. In the meantime it is important that you stay hydrated, but not to overdo it. You should avoid heavy lifting or strenuous activity - no climbing hills or intense yard work as we discussed. Avoid constipation and anything else that makes you "bear down" Continue to wear the heart monitor placed by cardiology and follow-up with them as scheduled. There are no changes to your home medications. I have attached instructions about post heart cath care below Activity: You can do normal everyday activities as your body allows. Take rest breaks if you feel tired. Do not overexert. Stop activity if you have pain, shortness of breath or feel dizzy. Follow-up appointments: Make an appointment with your primary care physician within one week of discharge. A copy of this summary will be sent to them. Every time you see your primary care physician, or any other doctor, bring your medication list, and a list of questions. CONTACT YOUR PRIMARY CARE PROVIDER if you experience any of the following: Shortness of breath or difficulty breathing Fevers or chills Feeling tired with normal activity or experiencing dizziness or fainting Difficulty following your treatment plan, or difficulty taking medications CALL 911 OR GO TO THE EMERGENCY DEPARTMENT if you experience any of the following: Severe abdominal pain or nausea/vomiting Severe chest pain, or chest pain that radiates (moves) to your jaw or arm Sudden, severe shortness of breath or difficulty breathing Thank you for allowing us to participate in your care. Juliane Olivares PA-C ACTIVITY RECOMMENDATIONS: Excess manipulation of the wrist should be avoided for the next 24-48 hours. * No lifting over 2 pounds (approximately a 1/2 gallon of milk) with the utilized arm for 24 hours. * No strenuous activity such as bowling or tennis for 3 days. * Keep the site of the procedure covered with a bandage for 24 hours. *You may shower the day after the procedure. Do not take a tub bath or submerge the puncture site in water for the next 3 days. *Do not operate any motorized equipment for 3 days. SPECIAL CARE INSTRUCTIONS: The site may be slightly bruised and sore following your procedure. Should any of the following occur, contact the Dr. who performed your procedure. 1. Redness/inflammation, swelling, chills, or fever, or colored drainage at procedure site within 3-7 days after your procedure. 2. Coldness, discoloration, ongoing numbness, severe pain, or swelling. Expect mild tingling of hand and tenderness at the puncture site for up to three days. If this persists beyond three days, or other symptoms develop, notify the DrCatrachita who performed your procedure. BLEEDING: If the procedure site on your wrist begins to bleed, do not panic 1. Place 1 or 2 fingers firmly just slightly above the insertion site to stop the bleeding. You may be able to feel your pulse as you hold pressure. 2. Lift your finger after 5 minutes to see if the bleeding has stopped. 3. Once the bleeding has stopped, gently wipe the wrist area clean with a bandage. * If the bleeding from your wrist does not stop after 10 minutes, or if there is a large amount of bleeding or spurting, call 911 (do not drive yourself to the hospital). SKIN IRRITATION: * You may experience some redness and/or swelling in the area where radiation was administered. If any skin irritation occurs, please contact your family physician. Total Time Total Time Spent Total Time Spent (In Minutes): Time spend day of discharge 40 minutes including direct patient care, medication reconciliation, documentation, review of labs and images, and coordination of care. Supervising Physician Co-Signing Physician Notes PA Supervision Note: I personally saw and examined the patient. I verified all jaramillo points and agree with HASMUKH Olivares with the following exceptions and/or additions: S-patient feeling well, no chest pains. Does have some mild dyspnea on exertion which has been chronic. Had a headache this morning but it was relieved with Tylenol. No lightheadedness or dizziness. O- Vitals reviewed Gen: AAOx3, NAD HEENT: Anicteric sclerae, EOMI CV: Irregularly irregular, normal rate, 3/6 CHEPE at RUSB Pulm: CTAB no wcr Ext: Trace edema of the legs bilaterally Skin: No rashes, warm/dry, posterior occiput with [address] of a horizontal laceration Neuro: Full strength throughout A/[id number]-old male here with syncope and head trauma likely secondary to severe aortic stenosis Had TAVR preoperative cardiac catheterization with mild to moderate nonobstructive CAD-started atorvastatin for risk factor modification Refer for TAVR at [facility] as part of an expedited evaluation No strenuous exertion recommended Needs nestor removed from head in 1 week Coding Level of Care Code 83585 INP/OBS DISCH >30 MIN Diagnoses Syncope and collapse R55 Persistent atrial fibrillation I48.19 Myasthenia gravis G70.00 Hyperglycemia R73.9 Hypertension I10
--- NOTE | 2023-08-17 13:56 | Cardiology Progress Note ---
Date of Service August 17, 2023 Assessment & Plan (1) Syncope: Plan 2. Low-flow, low gradient severe aortic stenosis 3. Persistent atrial fibrillationrelatively rate controlled on increased Toprol 25 mg BID 4. Prior VTEin setting of COVID 5. Mild to moderate nonobstructive CAD40% ostial LAD, 50% OM3 6. Mild to moderate MR 7. Myastheniachronic steroids Stable from a cardiac standpoint Remains in asymptomatic, relatively rate controlled atrial fibrillation No apparent access site complications from cardiac cath yesterday From a cardiac standpoint okay with discharge today. --Expedited TAVR evaluation pending as an outpatient with [facility]. --Continue current rate control with Toprol-XL 25 BID. --Avoid dehydration, strenuous exercise while awaiting AVR -- Restart Eliquis today --Start statin --Consider attempt at rhythm control if recurrent symptoms --Follow-up [facility] with Dr. Hansen. Appointment from today will be rescheduled Admission and Anticipated Discharge Date Admission Date: August 15, 2023 Subjective Feeling well this morning. No chest pain. Up walking around room without recurrent presyncope. Telemetry reviewedpersistent AF, primarily 80s to 100s, heart rates as high as 130s to 140s this morning Review of Systems Review of Systems: All systems reviewed & are unremarkable except as noted in HPI & below Physical Exam Physical Exam: General: Comfortable HEENT: Sclerae anicteric. Wound over right posterior aspect of head intact with nestor in place Lungs: Clear to auscultation bilaterally, no crackles or wheezes Cardiac: Irregular irregular, 3-6 systolic ejection murmur Vascular: Right radial artery access site with minimal ecchymosis, no hematoma. Distal pulse and sensation intact. Abdomen: Soft, nontender Extremities: Well perfused, trace edema neuro: Nonfocal Psych: Alert orient x3, normal affect and mood Results & Data Vital Signs (Past 12 Hours) Vital Signs Temp Pulse Resp BP Pulse Ox O2 Del Method 08/17/23 12:07 97.7 F 56 L 19 139/95 94 Room Air 08/17/23 08:00 98.1 F 90 19 145/92 H 94 Room Air 08/17/23 03:11 97.9 F 91 H 18 152/90 H 95 Room Air PG Care Time/CCT Total # of Minutes Spent Total Time Spent with Patient: Total time spent is greater than 50% in coordination of care (as documented) at patient's floor/unit and/or counseling patient: Coding Level of Care Code 87292 SUB INP/OBS CARE 350MIN Diagnoses Syncope R55
--- NOTE | 2023-08-18 05:28 | Electrocardiogram Report ---
Test Reason : Blood Pressure : / mmHG Vent. Rate : 118 BPM Atrial Rate : 000 BPM P-R Int : 000 ms QRS Dur : 134 ms QT Int : 354 ms P-R-T Axes : 000 -41 121 degrees QTc Int : 496 ms Atrial fibrillation with rapid ventricular response with premature ventricular or aberrantly conducte d complexes Left axis deviation Left bundle branch block Abnormal ECG When compared with ECG of 07-JUN-2023 17:13, Left bundle branch block is now Present Confirmed by Jaquan Skelton ([id number]) on 08/18/2023 5:28:06 AM Referred By: REFERRED SELF Confirmed By:Jaquan Skelton
--- NOTE | 2023-08-18 05:29 | Electrocardiogram Report ---
Test Reason : Blood Pressure : / mmHG Vent. Rate : 093 BPM Atrial Rate : 000 BPM P-R Int : 000 ms QRS Dur : 140 ms QT Int : 402 ms P-R-T Axes : 000 -38 117 degrees QTc Int : 499 ms Atrial fibrillation Left axis deviation Left bundle branch block Abnormal ECG When compared with ECG of 15-AUG-2023 17:39, No significant change was found Confirmed by Jaquan Skelton ([id number]) on 08/18/2023 5:29:26 AM Referred By: REFERRED SELF Confirmed By:Jaquan Skelton
--- NOTE | 2023-08-18 05:54 | Electrocardiogram Report ---
Test Reason : Blood Pressure : / mmHG Vent. Rate : 080 BPM Atrial Rate : 122 BPM P-R Int : 000 ms QRS Dur : 136 ms QT Int : 422 ms P-R-T Axes : 000 -39 105 degrees QTc Int : 486 ms Atrial fibrillation Left axis deviation Left bundle branch block Abnormal ECG When compared with ECG of 15-AUG-2023 18:25, No significant change was found Confirmed by Jaquan Skelton ([id number]) on 08/18/2023 5:53:36 AM Referred By: REFERRED SELF Confirmed By:Jaquan Skelton
== END 2023-08-17 14:29 | disposition home or self-care (01) | DRG 287 ==
LOC: ED 17:28 → EDINP 19:28 → SUATTDRO 19:28 → EDINP 21:35 → 2W 22:44 → 2S 08-16 17:15